=== PATIENT | female | born 1955 | race African-American/Black ===

== ENCOUNTER → 2016-09-28 | Day surgery (SDC) | payer OTHER ==
[~2016-09-28] MED LIST: LIDOCAINE 1%/EPI 1:100000 (20 ML MULTI DOSE VIAL) ONE
--- NOTE | 2016-10-04 14:59 | PATH ---
Surgical Pathology Report Patient Name: JARAD KRISHNA [facility]. Rec. #: [id number] /Age/Gender: 1955 (Age: 61) / F Account: [id number] Location: [facility] Taken: 09/28/2016 Received: 09/28/2016 Reported: 10/04/2016 Physicians: Austin Peace Specimen(s) Received RIGHT BREAST CORE BIOPSY 5:00 RETRO Clinical History Ultrasound findings: Suspicious Final Diagnosis Breast, right, 5:00 Retro, core biopsy: Invasive mammary carcinoma with mixed ductal and lobular features (nuclear grade 2), measuring 8 mm in greatest dimension in this material. 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 Note: E-cadherin immunostain (performed at [facility]) shows a heterogenous staining pattern with weak to moderate membranous staining in a subset of the tumor cells while negative in the morphologically lobular appearing carcinoma. Immunostain for p120 catenin (performed at [place], [place]; [id number]) shows cytoplasmic staining within a subset of the tumor cells with membranous staining in the morphologically ductal appearing component. This immunoprofile in conjunction with the morphologic features, supports overlapping ductal and lobular phenotype. Results of ER and IN studies performed at [facility] are as follows: ER (clone [id number] mouse monoclonal antibody by [employer]) : >90 % nuclear staining with strong intensity (Positive). IN (clone16 mouse monoclonal antibody by [employer]): ~70 % nuclear staining with moderate to strong intensity (Positive). Results of Her2 (IHC) & Ki-67 studies performed at [place], [place] ([id number]) are as follows: Her2 IHC (EP3 from [employer], formerly known as [id number], using Lewis Polymer Refine detection kit): 0 (Negative). Ki-67: 15-20% (Intermediate). Positive and negative controls (internal if applicable) show appropriate results. Formalin fixation and cold ischemic times are within current ASCO/CAP recommendations for ER, IN and Her2 testing. Electronically Signed Denise Montemayor M.D. Gross Description Received in formalin labeled "right breast 5:00 retro," of a 1.8 x 1.3 x 0.3 cm aggregate of multiple scanlon-yellow, irregular to cylindrical portions of fibroadipose tissue. The formalin is filtered and the specimen is entirely submitted in one cassette. Time to formalin fixation: 2 minutes Total formalin fixation time: Approximately 8 hours. 09/28/2016 [facility]09/28/2016
== END | disposition home or self-care (01) ==
LOC: FRADUS-SUR 12:06
PROVIDERS: ATTEND Family Medicine
PROC: 0HBT3ZX Excision of Right Breast, Percutaneous Approach, Diagnostic (ICD-10-PCS; principal; 2016-09-28)
DX: N63 Unspecified lump in breast (principal); C50.311 Malignant neoplasm of lower-inner quadrant of right female breast
CPT/HCPCS: 19083; 87899; 88305-TC; 88342-TC; A4648; G0206-TC

== ENCOUNTER 2016-11-09 12:07 | Inpatient (IN) | payer OTHER ==
--- NOTE | 2016-11-07 16:54 | HP ---
Admitting History and Physical - Primary Care Physician PCP: Isabella Figueroa - Admission Chief Complaint: right breast cancer History of Present Illness: 61 year old nulliparous postmenapausal female with screening mammgram showing right breast nodular assymetry and persitent on xveiw 09/03/2016. A Right 7mm retroareolar mass at 4:00 was seen on US, Birad 4. She has a family H/O breast and ovarian cancer. Us core bx 09/28/2016 right 5:00 retroareolar region showed invasive ductal and lobular carcinoma. She has a mechanical valve 1997. History Source: Patient Limitations to Obtaining History: Other (prosthetic valve) - Past Medical History Cardiovascular: Yes: HTN, Hyperlipdemia, Other (prosthetic mitral valve) ...: No Endocrine: Yes: Diabetes Mellitus - Past Surgical History Past Surgical History: Yes: Valve Replacement (prosthetic mitral valve replaced 1997 on coumadin) Additional Past Surgical History: Left breast core bx benign - Smoking History Smoking history: Never smoked Have you smoked in the past 12 months: No - Alcohol/Substance Use Hx Alcohol Use: Yes (SOCIAL) Home Medications - Allergies Allergies/Adverse Reactions: Allergies Allergy/AdvReac Type Severity Reaction Status Date / Time amoxicillin Allergy Severe Nausea Verified 11/07/16 12:26 Iodinated Contrast Media - Allergy Severe Hives Verified 11/07/16 12:26 Oral and sertraline HCl [From Zoloft] Allergy Unknown Verified 11/07/16 12:26 simvastatin [From Zocor] Allergy Unknown Verified 11/07/16 12:26 - Home Medications Home Medications: Ambulatory Orders Amiodarone HCl [Cordarone -] 200 mg PO DAILY 07/13/14 Amlodipine Besylate [Norvasc -] 10 mg PO DAILY 07/13/14 Atenolol [Tenormin -] 25 mg PO BID 07/13/14 Diltiazem HCl [Tiazac] 240 mg PO DAILY 07/13/14 Labetalol HCl [Normodyne -] 300 mg PO HS 07/13/14 Metformin HCl [Glucophage -] 500 mg PO BID 07/13/14 Quinapril HCl [Accupril -] 40 mg PO DAILY 07/13/14 Rosuvastatin Calcium [Crestor] 20 mg PO DAILY 07/13/14 Solifenacin Succinate [Vesicare] 10 mg PO HS 07/13/14 Warfarin Sodium [Coumadin] 5 mg PO HS 07/13/14 Oxycodone HCl/Acetaminophen [Percocet 5/325 -] 1 - 2 tab PO Q4H PRN 11/07/16 Family Disease History - Family Disease History Other Family History: paternal aunt breast ca 55 and maternal aunt ovarian ca 65 Physical Examination Constitutional: Yes: Well Nourished, No Distress Breast(s): Yes: Other (breast tissue is diffusely dense no palpable masses or adenopathy post bx changes right breast) Problem List - Problems (1) Breast cancer, right breast Code(s): C50.911 - MALIGNANT NEOPLASM OF UNSP SITE OF RIGHT FEMALE BREAST Qualifiers: Breast location: lower inner quadrant of breast Patient sex: female Assessment/Plan Right breast wide excision mammogram needle localization, lymphoscintogram , sentenel node biopsy , possible axillary node dissection, possible intraop radiation
--- NOTE | 2016-11-09 12:48 | HP ---
CHIEF COMPLAINT: breast ca PCP: Dr Lange Lay Out Carpenter: Dr Castano Breast surgeon: Dr Sheffield HISTORY OF PRESENT ILLNESS: patient is a 61 y/o female with a past medical history of paroxysmal afib, mitral valve replacement (mechanical, 1997), rheumatic heart disease, hypertension, right shoulder rotar cuff, hyperlipidemia , and invasive ductal lobular carcinoma of the right breast. Patient reports feeling well, her last dose of coumadin was Tuesday, November 07. Patient presents for pending right breast wide excision, partial mastectomy, possible axillary node dissection. Recent Travel: none PAST MEDICAL HISTORY: see hpi PAST SURGICAL HISTORY: see hpi Social History: resides at home, subsitute teacher Smoking: former smoker Alcohol:social Drugs: none Family History: Mother 80y/o alive and well, CAD, COPD, PPM Father at 53y/o [place] Allergies amoxicillin Allergy (Severe, Verified 11/07/16 12:26) Nausea Iodinated Contrast Media - Oral and Allergy (Severe, Verified 11/07/16 12:26) Hives sertraline HCl [From Zoloft] Allergy (Unknown, Verified 11/07/16 12:26) simvastatin [From Zocor] Allergy (Unknown, Verified 11/07/16 12:26) HOME MEDICATIONS: Home Medications Medication Instructions Recorded Amiodarone HCl [Cordarone -] 200 mg PO DAILY 07/13/14 Amlodipine Besylate [Norvasc -] 10 mg PO DAILY 07/13/14 Atenolol [Tenormin -] 25 mg PO BID 07/13/14 Diltiazem HCl [Tiazac] 240 mg PO DAILY 07/13/14 Labetalol HCl [Normodyne -] 300 mg PO HS 07/13/14 Metformin HCl [Glucophage -] 500 mg PO BID 07/13/14 Quinapril HCl [Accupril -] 40 mg PO DAILY 07/13/14 Rosuvastatin Calcium [Crestor] 20 mg PO DAILY 07/13/14 Solifenacin Succinate [Vesicare] 10 mg PO HS 07/13/14 Warfarin Sodium [Coumadin] 5 mg PO HS 07/13/14 Oxycodone HCl/Acetaminophen 1 - 2 tab PO Q4H PRN 11/07/16 [Percocet 5/325 -] REVIEW OF SYSTEMS CONSTITUTIONAL: Absent: fever, chills, diaphoresis, generalized weakness, malaise, loss of appetite, weight change HEENT: Absent: rhinorrhea, nasal congestion, throat pain, throat swelling, difficulty swallowing, mouth swelling, ear pain, eye pain, visual changes CARDIOVASCULAR: Absent: chest pain, syncope, palpitations, irregular heart rate, lightheadedness , peripheral edema RESPIRATORY: Absent: cough, shortness of breath, dyspnea with exertion, orthopnea, wheezing, stridor, hemoptysis GASTROINTESTINAL: Absent: abdominal pain, abdominal distension, nausea, vomiting, diarrhea, constipation, melena, hematochezia GENITOURINARY: Absent: dysuria, frequency, urgency, hesitancy, hematuria, flank pain, genital pain MUSCULOSKELETAL: Absent: myalgia, arthralgia, joint swelling, back pain, neck pain SKIN: Absent: rash, itching, pallor HEMATOLOGIC/IMMUNOLOGIC: Absent: easy bleeding, easy bruising, lymphadenopathy, frequent infections ENDOCRINE: Absent: unexplained weight gain, unexplained weight loss, heat intolerance, cold intolerance NEUROLOGIC: Absent: headache, focal weakness or paresthesias, dizziness, unsteady gait, seizure, mental status changes, bladder or bowel incontinence PSYCHIATRIC: Absent: anxiety, depression, suicidal or homicidal ideation, hallucinations. PHYSICAL EXAMINATION GENERAL: thin, Awake, alert, and fully oriented, anxious. HEAD: Normal with no signs of trauma. EYES: Pupils equal, round and reactive to light, extraocular movements intact, sclera anicteric, conjunctiva clear. No lid lag. EARS, NOSE, THROAT: Ears normal, nares patent, oropharynx clear without exudates. Moist mucous membranes. NECK: Normal range of motion, supple without lymphadenopathy, JVD, or masses. LUNGS: Breath sounds equal, clear to auscultation bilaterally. No wheezes, and no crackles. No accessory muscle use. HEART: regular, rate and rhythm, normal S1 and S2 without murmur, rub or gallop. ABDOMEN: Soft, nontender, not distended, normoactive bowel sounds, no guarding, no rebound, no masses. No hepatomegaly or splenomegaly. MUSCULOSKELETAL: Normal range of motion at all joints. No bony deformities or tenderness. No CVA tenderness. UPPER EXTREMITIES: 2+ pulses, warm, well-perfused. No cyanosis. No clubbing. No peripheral edema. LOWER EXTREMITIES: 2+ pulses, warm, well-perfused. No calf tenderness. No peripheral edema. NEUROLOGICAL: Cranial nerves II-XII intact. Normal speech. Normal gait. PSYCHIATRIC: Cooperative. Good eye contact. Appropriate mood and affect. SKIN: Warm, dry, normal turgor, no rashes or lesions noted, normal capillary refill. ASSESSMENT/PLAN: 1) card paroxysmal Afib - pt currently in NSR, strict monitoring - continue amiodarone and atenolol - cardiology consulted and following, Dr Castano, patient's private leather scrubber - Dr Castano cardiac clearance reviewed recent stress test LV function normal, no ischemia, normal sinus rhythmn s/p mechanical valve - hold coumadin, INR ordered, if INR is below 2.5, will start heparin gtt hyperlipidemia - continue, crestor hypertension - strict b/p monitoring, b/p at goal, continue atenolol and norvasc 2) endo NIDDM - continue metformin, fingersticks achs with regular insulin coverage 3) onc invasive ductal lobular carcinoma of the right breast - pt is pending surgery for right breast wide excision, partial mastectomy, possible axillary node dissection on November 13 - Dr Sheffield, breast surgeon, consulted and following f/e/n - low sodium diabetic diet - replete lytes prn ppx - zantac - coumadin - oob - scd dispo: requires inpatient admission Visit type - Emergency Visit Emergency Visit: No - New Patient This patient is new to me today: Yes Date on this admission: 11/09/16 - Critical Care Critical Care patient: No
[2016-11-09 13:37] LABS: BASOPHIL 3.6 % (0-2.0); EOSINOPHIL 2.6 % (0-4.5); MCH 28.8 pg (25.7-33.7); MCHC 33.3 g/dl (32.0-36.0); MEAN CELL VOLUME 86.7 fl (80-96); MEAN PLT VOLUME 8.7 fl (7.5-11.1); NEUTROPHILS 54.9 % (42.8-82.8); PLATELET COUNT 316 K/MM3 (134-434); RDW 15.1 % (11.6-15.6); WHITE BLOOD COUNT 5.4 K/mm3 (4.0-10.8)
[2016-11-09 13:39] VITALS: BMI 25.1
[2016-11-09 13:49] LABS: INR 2.3 (0.82-1.09); PROTHROMBIN TIME (PATIENT) 25.3 SEC (10.2-13.0)
--- NOTE | 2016-11-09 14:21 | CON.CARD ---
Cardiology Consult (text) - Consultation Consultation Note: Cardiology Consult CC: Admitted directly for UFH gtts as bridge to surgery, history mechnical MR ' 98 Procedure: Right breast wide excision, partial mastectomy, possible axillary node dissection. HPI: 61F with newly diagnosed breast CA admitted for breast surgery and management of AC for mechanical MV preop. PMHx: of rheumatic heart disease s/p mechanical MCR 1998, PAF, refractory HTN, DM, HL She has no CV complaints at this time. 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 Physical Exam Vitals as listed. Selected Entries No distress Anicteric CV: mech S1, nl S2. Chest: CTA b/l Abd: soft, NT Ext: no edema 11/09/16 12:35 Temperature 97.6 F Pulse Rate 76 Blood Pressure 144/73 O2 Sat by Pulse 100 Oximetry (%) Weight 163 lb 0.3 oz LABS: Laboratory Tests 11/09/16 11/09/16 12:45 12:45 WBC 5.4 Hgb 12.6 Hct 38.0 Plt Count 316 INR 2.30 H IMP: Newly diagnosed breast CA, preop for possible right partial mastectomy and LN dissection Mechanical MVR, PAF on coumadin Admitted for management of anticoagulation preop REC: After one evening of holding coumadin, INR is 2.3 which is subtherapeutic (goal INR 2.5-3.5). Recommend holding coumadin and agree with UFH gtts as bridge to surgery. Post op, will need bridging again until INR above 2.5. Continue home BP and rate control meds-- her regimen is somewhat unusual including both Labetalol and Atenolol as well as Cardizem and Norvasc. She has been on this regimen for > 5 years and has told me that prior to initiating this combo of meds, her BP was very difficult to manage and her AF was was very active with frequent episodes of RVR requiring hospitalization and DCCV. She has been stable on these meds under my care for the last year.
[2016-11-09] MEDS ORDERED: HEPARIN INFUSION - 500 ML IVPB ONE (14:49)
[2016-11-09] MEDS: HEPARIN INFUSION - 500 ML IVPB SCH (14:59)
[2016-11-09] MEDS ORDERED: metFORMIN HCL 500 MG TABLET (FP) PO SCH (16:30)
[2016-11-09] MEDS: INSULIN SLIDING SCALE (NOVOLOG) 1 VIAL SQ SCH ×2 (16:37→23:12)
[2016-11-09 16:49] LABS: ALBUMIN 4.3 g/dl (3.5-5.0); ALK PHOS 76 U/L (32-92); ANION GAP 8 (8-16); BILIRUBIN,TOTAL 0.9 mg/dl (0.2-1.0); CALCIUM 9.6 mg/dl (8.4-10.2); CO2 24 mmol/L (22-28); CREATININE 0.8 mg/dl (0.6-1.3); GLUCOSE,RANDOM 117 mg/dl (74-106); SGOT/AST 28 U/L (10-42); SGPT/ALT 18 U/L (10-40)
[2016-11-09] MEDS: metFORMIN HCL 500 MG TABLET (FP) PO SCH (18:20)
[2016-11-09] MEDS: LABETALOL HCL 100 MG TABLET (FP) PO SCH (22:13)
[2016-11-09] MEDS: SOLIFENACIN SUCCINATE 5 MG TAB (FP) PO SCH (22:13)
[2016-11-09] MEDS: ATENOLOL 25 MG TABLET (FP) PO SCH (22:13)
[2016-11-10] MEDS: metFORMIN HCL 500 MG TABLET (FP) PO SCH ×2 (06:14→17:02)
[2016-11-10] MEDS: INSULIN SLIDING SCALE (NOVOLOG) 1 VIAL SQ SCH ×3 (06:38→22:20)
[2016-11-10 08:04] LABS: MCHC 33.2 g/dl (32.0-36.0); MEAN CELL VOLUME 87.4 fl (80-96); MEAN PLT VOLUME 8.6 fl (7.5-11.1); PLATELET COUNT 325 K/MM3 (134-434); RDW 14.6 % (11.6-15.6); WHITE BLOOD COUNT 4.7 K/mm3 (4.0-10.8)
[2016-11-10 08:24] LABS: INR 2.07 (0.82-1.09); PROTHROMBIN TIME (PATIENT) 22.9 SEC (10.2-13.0)
--- NOTE | 2016-11-10 08:53 | PN ---
Physical Exam: SUBJECTIVE: Patient seen and examined at bedside. Currently without complaints. Heparin gtt infusing. OBJECTIVE: Vital Signs 3 Period Temp Pulse Resp BP Sys/Solares Pulse Ox Last 24 Hr 97.6 F-98.5 F 59-76 17-18 104-144/48-73 95-100 GENERAL: The patient is awake, alert, and fully oriented, in no acute distress. HEAD: Normal with no signs of trauma. LUNGS: Breath sounds equal, clear to auscultation bilaterally, no wheezes, no crackles, no accessory muscle use. HEART: Regular rate and rhythm, S1, S2 without murmur, rub or gallop. Mechanical valve auscultated. ABDOMEN: Soft, nontender, nondistended, normoactive bowel sounds, no guarding, no rebound, no hepatosplenomegaly, no masses. EXTREMITIES: 2+ pulses, warm, well-perfused, no edema. NEUROLOGICAL: Cranial nerves II through XII grossly intact. Normal speech, gait steady. PSYCH: Normal mood, normal affect. SKIN: Warm, dry, normal turgor, no rashes or lesions noted Laboratory Results - last 24 hr 3 11/09/16 11/09/16 11/09/16 12:45 12:45 14:20 WBC 5.4 RBC 4.38 Hgb 12.6 Hct 38.0 MCV 86.7 MCH MCHC 33.3 RDW 15.1 Plt Count 316 MPV 8.7 Neutrophils % 54.9 Lymphocytes % 30.1 Monocytes % 8.8 Eosinophils % 2.6 Basophils % 3.6 H INR 2.30 H PTT (Actin FS) Sodium Potassium Chloride Carbon Dioxide Anion Gap BUN Creatinine Creat Clearance w eGFR POC Glucometer Random Glucose Calcium Total Bilirubin AST ALT Alkaline Phosphatase Total Protein Albumin Blood Type O POSITIVE Antibody Screen Negative 3 11/09/16 11/09/16 11/09/16 14:20 14:20 16:35 WBC RBC Hgb Hct MCV MCH MCHC RDW Plt Count MPV Neutrophils % Lymphocytes % Monocytes % Eosinophils % Basophils % INR PTT (Actin FS) Sodium 140 Potassium 3.9 Chloride 108 H Carbon Dioxide 24 Anion Gap 8 BUN 13 Creatinine 0.8 Creat Clearance w eGFR > 60 POC Glucometer 121 Random Glucose 117 H Calcium 9.6 Total Bilirubin 0.9 AST 28 ALT 18 Alkaline Phosphatase 76 Total Protein 7.0 Albumin 4.3 Blood Type O POSITIVE Antibody Screen 3 11/09/16 11/09/16 11/10/16 21:00 22:17 06:13 WBC RBC Hgb Hct MCV MCH MCHC RDW Plt Count MPV Neutrophils % Lymphocytes % Monocytes % Eosinophils % Basophils % INR PTT (Actin FS) 59.6 H Sodium Potassium Chloride Carbon Dioxide Anion Gap BUN Creatinine Creat Clearance w eGFR POC Glucometer 109 110 Random Glucose Calcium Total Bilirubin AST ALT Alkaline Phosphatase Total Protein Albumin Blood Type Antibody Screen 3 11/10/16 11/10/16 07:48 07:48 WBC 4.7 RBC 4.29 Hgb 12.4 Hct 37.5 MCV 87.4 MCH 29.0 MCHC 33.2 RDW 14.6 Plt Count 325 MPV 8.6 Neutrophils % Y Lymphocytes % Y Monocytes % Eosinophils % Basophils % INR 2.07 H PTT (Actin FS) Sodium Potassium Chloride Carbon Dioxide Anion Gap BUN Creatinine Creat Clearance w eGFR POC Glucometer Random Glucose Calcium Total Bilirubin AST ALT Alkaline Phosphatase Total Protein Albumin Blood Type Antibody Screen Active Medications 3 Generic Name Dose Route Start Last Admin Trade Name Romie PRN Reason Stop Dose Admin Amiodarone HCl 200 mg 11/10/16 10:00 Cordarone - PO DAILY SPEEDY Amlodipine Besylate 10 mg 11/10/16 10:00 Norvasc - PO DAILY [facility] Atenolol 25 mg 11/09/16 22:00 11/09/16 22:13 Tenormin - PO 25 mg BID SPEEDY Administration Diltiazem HCl 240 mg 11/10/16 10:00 Cardizem Cd - PO DAILY SPEEDY Heparin Sodium/Dextrose 500 mls @ 16 mls/hr 11/09/16 14:15 11/09/16 14:59 Heparin Infusion - IVPB 16 mls/hr TITR SPEEDY Administration Protocol 800 UNITS/HR Insulin Aspart 1 vial 11/09/16 16:30 11/10/16 06:38 Novolog Vial Sliding Scale - SQ Not Given ACHS SPEEDY Protocol Labetalol HCl 300 mg 11/09/16 22:00 11/09/16 22:13 Normodyne - PO 300 mg HS SPEEDY Administration Metformin HCl 500 mg 11/09/16 16:30 11/10/16 06:14 Glucophage - PO 500 mg BIDI SPEEDY Administration Quinapril HCl 40 mg 11/10/16 10:00 Accupril - PO DAILY SPEEDY Ranitidine HCl 150 mg 11/10/16 10:00 Zantac - PO DAILY SPEEDY Rosuvastatin Calcium 20 mg 11/10/16 10:00 Crestor - PO DAILY SPEEDY Solifenacin 10 mg 11/09/16 22:00 11/09/16 22:13 Vesicare - PO 10 mg HS SPEEDY Administration ASSESSMENT/PLAN: A: 61 yo woman with invasive right ductal and lobular carcinoma- scheduled for right breast wide excision with possible lymph node dissection on 11/13. Needs heparin bridge to wean warfarin. P: 1. Right ductal and lobular carcinoma - breast wide excision scheduled for 11/13 2. Mechanical mitral valve - INR- 2.07 this AM - continue to hold warfarin - continue heparin gtt- titrate per ptt results - daily ptt/pt/INR 3. Paroxysmal atrial fibrillation - continue amiodorone - continue diltiazem - continue labetalol - continue atenolol 4. HTN - well controlled on current regimen - continue amiodorone - continue diltiazem - continue labetalol - continue atenolol - continue norvasc - continue quinapril 5. DM - FSBG qACHS - ISS - Metformin 6. HLD - Crestor 7. F/E/N - diabetic diet - replete prn 8. PPX - Zantac - heparin gtt - SCD - OOB Dispo- requires inpatient treatment of her medical conditions Code Status: FULL CODE Visit type - Emergency Visit Emergency Visit: Yes ED Registration Date: 11/09/16 Care time: The patient presented to the Emergency Department on the above date and was hospitalized for further evaluation of their emergent condition. - New Patient This patient is new to me today: Yes Date on this admission: 11/11/16 - Critical Care Critical Care patient: No
[2016-11-10 09:00] LABS: PLATELET ESTIMATE NORMAL (NORMAL)
[2016-11-10] MEDS: RANITIDINE HCL 150 MG TABLET (FP) PO SCH (10:22)
[2016-11-10] MEDS: ATENOLOL 25 MG TABLET (FP) PO SCH ×2 (10:22→21:40)
[2016-11-10] MEDS: ROSUVASTATIN CA 20 MG TABLET (FP) PO SCH (10:22)
[2016-11-10] MEDS: amLODIPine BESYLATE 10 MG TABLET (FP) PO SCH (10:22)
[2016-11-10] MEDS: AMIODARONE HCL 200 MG TABLET (FP) PO SCH (10:22)
[2016-11-10] MEDS: QUINAPRIL HCL 40 MG TABLET (FP) PO SCH (10:24)
[2016-11-10] MEDS: HEPARIN INFUSION - 500 ML IVPB SCH (17:02)
[2016-11-10] MEDS: LABETALOL HCL 100 MG TABLET (FP) PO SCH (21:39)
[2016-11-10] MEDS: SOLIFENACIN SUCCINATE 5 MG TAB (FP) PO SCH (21:39)
[2016-11-11] MEDS: metFORMIN HCL 500 MG TABLET (FP) PO SCH ×2 (06:39→17:35)
[2016-11-11] MEDS: INSULIN SLIDING SCALE (NOVOLOG) 1 VIAL SQ SCH ×3 (06:39→17:35)
[2016-11-11 08:17] LABS: INR 1.44 (0.82-1.09)
[2016-11-11 08:24] LABS: ACTIVATED PTT 39.5 SECONDS (24.0-38.9)
[2016-11-11] MEDS ORDERED: HEPARIN NA (PORCINE) 5,000 UNITS/ML 1ML VIAL ONE (08:51)
[2016-11-11] MEDS: HEPARIN NA (PORCINE) 5,000 UNITS/ML 1ML VIAL IVPUSH PRN (09:00)
--- NOTE | 2016-11-11 09:03 | PN ---
Physical Exam: SUBJECTIVE: Patient seen and examined at bedside. Denies all c/o at present. OBJECTIVE: Vital Signs Period Temp Pulse Resp BP Sys/Solares Pulse Ox Last 24 Hr 98.3 F-98.8 F 61-74 18-20 104-128/57-67 99-100 GENERAL: The patient is awake, alert, and fully oriented, in no acute distress. HEAD: Normal with no signs of trauma. LUNGS: Breath sounds equal, clear to auscultation bilaterally, no wheezes, no crackles, no accessory muscle use. HEART: Regular rate and rhythm, S1, S2 with 2/6 systolic murmur. No rub or gallop. ABDOMEN: Soft, nontender, nondistended, normoactive bowel sounds, no guarding, no rebound, no hepatosplenomegaly, no masses. EXTREMITIES: 2+ pulses, warm, well-perfused, no edema. NEUROLOGICAL: Cranial nerves II through XII grossly intact. Normal speech, gait steady. PSYCH: Normal mood, normal affect. SKIN: Warm, dry, normal turgor, no rashes or lesions noted Laboratory Results - last 24 hr 3 11/10/16 11/10/16 11/10/16 08:32 12:40 22:13 INR PTT (Actin FS) 57.7 H POC Glucometer 106 112 3 11/11/16 11/11/16 06:09 06:15 INR 1.44 H D PTT (Actin FS) 39.5 H D POC Glucometer 116 Active Medications 3 Generic Name Dose Route Start Last Admin Trade Name Freq PRN Reason Stop Dose Admin Amiodarone HCl 200 mg 11/10/16 10:00 11/10/16 10:22 Cordarone - PO 200 mg DAILY SPEEDY Administration Amlodipine Besylate 10 mg 11/10/16 10:00 11/10/16 10:22 Norvasc - PO 10 mg DAILY SPEEDY Administration Atenolol 25 mg 11/09/16 22:00 11/10/16 21:40 Tenormin - PO 25 mg BID SPEEDY Administration Diltiazem HCl 240 mg 11/10/16 10:00 11/10/16 10:22 Cardizem Cd - PO 240 mg DAILY SPEEDY Administration Heparin Sodium/Dextrose 500 mls @ 16 mls/hr 11/09/16 14:15 11/10/16 17:02 Heparin Infusion - IVPB 16 mls/hr TITR SPEEDY Administration Protocol 800 UNITS/HR Insulin Aspart 1 vial 11/09/16 16:30 11/11/16 06:39 Novolog Vial Sliding Scale - SQ Not Given ACHS SPEEDY Protocol Labetalol HCl 300 mg 11/09/16 22:00 11/10/16 21:39 Normodyne - PO 300 mg HS SPEEDY Administration Metformin HCl 500 mg 11/09/16 16:30 11/11/16 06:39 Glucophage - PO 500 mg BIDI SPEEDY Administration Quinapril HCl 40 mg 11/10/16 10:00 11/10/16 10:24 Accupril - PO 40 mg DAILY SPEEDY Administration Ranitidine HCl 150 mg 11/10/16 10:00 11/10/16 10:22 Zantac - PO 150 mg DAILY SPEEDY Administration Rosuvastatin Calcium 20 mg 11/10/16 10:00 11/10/16 10:22 Crestor - PO 20 mg DAILY SPEEDY Administration Solifenacin 10 mg 11/09/16 22:00 11/10/16 21:39 Vesicare - PO 10 mg HS SPEEDY Administration ASSESSMENT/PLAN: A: 61 yo woman with invasive right ductal and lobular carcinoma- scheduled for right breast wide excision with possible lymph node dissection on 11/13. Needs heparin bridge to wean warfarin pre-procedure. P: 1. Right ductal and lobular carcinoma - breast wide excision scheduled for 11/13 2. Mechanical mitral valve - INR- 1.44 this AM - continue to hold warfarin - continue heparin gtt- titrate per ptt results 39.4 this AM increased gtt to 19cc/hr and bolus of 5000 units - daily ptt/pt/INR 3. Paroxysmal atrial fibrillation - continue amiodorone - continue diltiazem - continue labetalol - continue atenolol 4. HTN - well controlled on current regimen - continue amiodorone - continue diltiazem - continue labetalol - continue atenolol - continue norvasc - continue quinapril 5. DM - FSBG qACHS - ISS - Metformin 6. HLD - Crestor 7. F/E/N - diabetic diet - replete prn 8. PPX - Zantac - heparin gtt - SCD - OOB Dispo- requires inpatient treatment of her medical conditions Code Status: FULL CODE Visit type - Emergency Visit Emergency Visit: Yes ED Registration Date: 11/09/16 Care time: The patient presented to the Emergency Department on the above date and was hospitalized for further evaluation of their emergent condition. - New Patient This patient is new to me today: No - Critical Care Critical Care patient: No
[2016-11-11] MEDS ORDERED: PT OWN MED DRAWER 7, Y5N ONE (09:27)
[2016-11-11] MEDS: ROSUVASTATIN CA 20 MG TABLET (FP) PO SCH (09:33)
[2016-11-11] MEDS: RANITIDINE HCL 150 MG TABLET (FP) PO SCH (09:33)
[2016-11-11] MEDS: amLODIPine BESYLATE 10 MG TABLET (FP) PO SCH (09:33)
[2016-11-11] MEDS: QUINAPRIL HCL 40 MG TABLET (FP) PO SCH (09:33)
[2016-11-11] MEDS: AMIODARONE HCL 200 MG TABLET (FP) PO SCH (09:33)
[2016-11-11] MEDS: ATENOLOL 25 MG TABLET (FP) PO SCH ×2 (09:33→21:26)
[2016-11-11] MEDS ORDERED: HEPARIN INFUSION - 500 ML IVPB SCH (09:41)
[2016-11-11] MEDS: HEPARIN INFUSION - 500 ML IVPB SCH ×3 (16:00→17:56)
[2016-11-11] MEDS: LABETALOL HCL 100 MG TABLET (FP) PO SCH (21:26)
[2016-11-11] MEDS: SOLIFENACIN SUCCINATE 5 MG TAB (FP) PO SCH (21:26)
[2016-11-12] MEDS: INSULIN SLIDING SCALE (NOVOLOG) 1 VIAL SQ SCH ×3 (06:23→17:47)
[2016-11-12] MEDS: metFORMIN HCL 500 MG TABLET (FP) PO SCH ×3 (06:24→18:15)
--- NOTE | 2016-11-12 08:12 | PN ---
Physical Exam: SUBJECTIVE: Patient seen and examined, reports feeling well, anxious about her pending surgery tomorrow OBJECTIVE: patient is a 61 y/o female with a past medical history of paroxysmal afib, mitral valve replacement (mechanical, 1997), rheumatic heart disease, hypertension, right shoulder rotar cuff, hyperlipidemia, and invasive ductal lobular carcinoma of the right breast. Patient was admitted from the emergency department for subthereputic inr Vital Signs Period Temp Pulse Resp BP Sys/Solares Pulse Ox Last 24 Hr 97.7 F-98.6 F 55-67 18-18 99-120/53-58 99-100 GENERAL: Thin, Awake, alert, and fully oriented, anxious. HEAD: Normal with no signs of trauma. EYES: Pupils equal, round and reactive to light, extraocular movements intact, sclera anicteric, conjunctiva clear. No lid lag. EARS, NOSE, THROAT: Ears normal, nares patent, oropharynx clear without exudates. Moist mucous membranes. NECK: Normal range of motion, supple without lymphadenopathy, JVD, or masses. LUNGS: Breath sounds equal, clear to auscultation bilaterally. No wheezes, and no crackles. No accessory muscle use. HEART: regular, rate and rhythm, normal S1 and S2 without murmur, rub or gallop. ABDOMEN: Soft, nontender, not distended, normoactive bowel sounds, no guarding, no rebound, no masses. No hepatomegaly or splenomegaly. MUSCULOSKELETAL: Normal range of motion at all joints. No bony deformities or tenderness. No CVA tenderness. UPPER EXTREMITIES: 2+ pulses, warm, well-perfused. No cyanosis. No clubbing. No peripheral edema. LOWER EXTREMITIES: 2+ pulses, warm, well-perfused. No calf tenderness. No peripheral edema. NEUROLOGICAL: Cranial nerves II-XII intact. Normal speech. Normal gait. PSYCHIATRIC: Cooperative. Good eye contact. Appropriate mood and affect. SKIN: Warm, dry, normal turgor, no rashes or lesions noted, normal capillary refill. Laboratory Results - last 24 hr 11/11/16 11/11/16 11/11/16 06:15 12:02 14:50 INR 1.44 H D PTT (Actin FS) 39.5 H D 92.6 H D POC Glucometer 123 11/11/16 11/11/16 11/11/16 17:19 21:36 23:20 INR PTT (Actin FS) 49.0 H D POC Glucometer 108 92 11/12/16 05:47 INR PTT (Actin FS) POC Glucometer 123 Active Medications Generic Name Dose Route Start Last Admin Trade Name Freq PRN Reason Stop Dose Admin Amiodarone HCl 200 mg 11/10/16 10:00 11/11/16 09:33 Cordarone - PO 200 mg DAILY SPEEDY Administration Amlodipine Besylate 10 mg 11/10/16 10:00 11/11/16 09:33 Norvasc - PO 10 mg DAILY SPEEDY Administration Atenolol 25 mg 11/09/16 22:00 11/11/16 21:26 Tenormin - PO 25 mg BID SPEEDY Administration Diltiazem HCl 240 mg 11/10/16 10:00 11/11/16 09:33 Cardizem Cd - PO 240 mg DAILY SPEEDY Administration Heparin Sodium (Porcine) 5,000 unit 11/11/16 09:42 11/11/16 09:00 Heparin - IVPUSH 5,000 unit PRN PRN Administration Heparin Heparin Sodium/Dextrose 500 mls @ 19 mls/hr 11/11/16 12:25 11/11/16 23:54 Heparin Infusion - IVPB TITR SPEEDY Titration Protocol Titrate Insulin Aspart 1 vial 11/09/16 16:30 11/12/16 06:23 Novolog Vial Sliding Scale - SQ Not Given ACHS SPEEDY Protocol Labetalol HCl 300 mg 11/09/16 22:00 11/11/16 21:26 Normodyne - PO 300 mg HS SPEEDY Administration Metformin HCl 500 mg 11/09/16 16:30 11/12/16 06:24 Glucophage - PO 500 mg BIDI SPEEDY Administration Quinapril HCl 40 mg 11/10/16 10:00 11/11/16 09:33 Accupril - PO 40 mg DAILY SPEEDY Administration Ranitidine HCl 150 mg 11/10/16 10:00 11/11/16 09:33 Zantac - PO 150 mg DAILY SPEEDY Administration Rosuvastatin Calcium 20 mg 11/10/16 10:00 11/11/16 09:33 Crestor - PO 20 mg DAILY SPEEDY Administration Solifenacin 10 mg 11/09/16 22:00 11/11/16 21:26 Vesicare - PO 10 mg HS SPEEDY Administration ASSESSMENT/PLAN: 1) card paroxysmal Afib - pt currently in NSR, strict monitoring - continue amiodarone and atenolol - cardiology consulted and following, Dr Castano, patient's private training representative - Dr Castano cardiac clearance reviewed recent stress test LV function normal, no ischemia, normal sinus rhythmn s/p mechanical valve - hold coumadin, continue heparin gtt, pending OR tomm, heparin gtt to be stopped, one hour prior to the procedure hyperlipidemia - continue, crestor hypertension - strict b/p monitoring, b/p at goal, continue atenolol and norvasc 2) endo NIDDM - continue metformin, fingersticks achs with regular insulin coverage 3) onc invasive ductal lobular carcinoma of the right breast - pt is pending surgery for right breast wide excision, partial mastectomy, possible axillary node dissection on November 13 - Dr Sheffield, breast surgeon, consulted and following f/e/n - low sodium diabetic diet--->npo after midnight - replete lytes prn ppx - zantac - coumadin - oob - scd dispo: requires inpatient admission Visit type - Emergency Visit Emergency Visit: Yes ED Registration Date: 11/09/16 Care time: The patient presented to the Emergency Department on the above date and was hospitalized for further evaluation of their emergent condition. - New Patient This patient is new to me today: No - Critical Care Critical Care patient: No - Discharge Referral Referred to [facility] Med P.C.: No
[2016-11-12 08:26] LABS: INR 1.16 (0.82-1.09); PROTHROMBIN TIME (PATIENT) 12.9 SEC (10.2-13.0)
[2016-11-12 08:33] LABS: ACTIVATED PTT 56.9 SECONDS (24.0-38.9)
[2016-11-12 08:40] LABS: BASOPHIL 1.8 % (0-2.0); EOSINOPHIL 3.9 % (0-4.5); MCH 29.1 pg (25.7-33.7); MCHC 33.3 g/dl (32.0-36.0); MEAN CELL VOLUME 87.4 fl (80-96); MEAN PLT VOLUME 9.1 fl (7.5-11.1); PLATELET COUNT 286 K/MM3 (134-434); WHITE BLOOD COUNT 4.8 K/mm3 (4.0-10.8)
[2016-11-12] MEDS: QUINAPRIL HCL 20 MG TABLET (FP) PO SCH (09:39)
[2016-11-12] MEDS: ROSUVASTATIN CA 20 MG TABLET (FP) PO SCH (09:40)
[2016-11-12] MEDS: AMIODARONE HCL 200 MG TABLET (FP) PO SCH (09:40)
[2016-11-12] MEDS: amLODIPine BESYLATE 10 MG TABLET (FP) PO SCH (09:40)
[2016-11-12] MEDS: RANITIDINE HCL 150 MG TABLET (FP) PO SCH (09:41)
[2016-11-12] MEDS: ATENOLOL 25 MG TABLET (FP) PO SCH ×2 (09:41→21:27)
--- NOTE | 2016-11-12 12:04 | PN ---
Progress Note, Physician History of Present Illness: seen and examined today in nad. no new complaints. - Current Medication List Current Medications: Active Medications Amiodarone HCl (Cordarone -) 200 mg PO DAILY [facility] Last Admin: 11/12/16 09:40 Dose: 200 mg Amlodipine Besylate (Norvasc -) 10 mg PO DAILY [facility] Last Admin: 11/12/16 09:40 Dose: 10 mg Atenolol (Tenormin -) 25 mg PO BID [facility] Last Admin: 11/12/16 09:41 Dose: 25 mg Diltiazem HCl (Cardizem Cd -) 240 mg PO DAILY [facility] Last Admin: 11/12/16 09:40 Dose: 240 mg Heparin Sodium (Porcine) (Heparin -) 5,000 unit IVPUSH PRN PRN PRN Reason: Heparin Last Admin: 11/11/16 09:00 Dose: 5,000 unit Heparin Sodium/Dextrose (Heparin Infusion -) 500 mls @ 19 mls/hr IVPB TITR SPEEDY ; Titrate PRN Reason: Protocol Last Titration: 11/11/16 23:54 Dose: Insulin Aspart (Novolog Vial Sliding Scale -) 1 vial SQ ACHS SPEEDY PRN Reason: Protocol Last Admin: 11/12/16 11:10 Dose: Not Given Labetalol HCl (Normodyne -) 300 mg PO HS [facility] Last Admin: 11/11/16 21:26 Dose: 300 mg Metformin HCl (Glucophage -) 500 mg PO BIDI [facility] Last Admin: 11/12/16 06:24 Dose: 500 mg Quinapril HCl (Accupril -) 40 mg PO DAILY [facility] Last Admin: 11/12/16 09:39 Dose: 40 mg Ranitidine HCl (Zantac -) 150 mg PO DAILY [facility] Last Admin: 11/12/16 09:41 Dose: 150 mg Rosuvastatin Calcium (Crestor -) 20 mg PO DAILY [facility] Last Admin: 11/12/16 09:40 Dose: 20 mg Solifenacin (Vesicare -) 10 mg PO HS [facility] Last Admin: 11/11/16 21:26 Dose: 10 mg - Objective Vital Signs: Vital Signs Temperature 98.3 F 11/12/16 06:00 Pulse Rate 72 11/12/16 10:00 Respiratory Rate 18 11/12/16 10:00 Blood Pressure 106/72 11/12/16 10:00 O2 Sat by Pulse Oximetry (%) 100 11/12/16 06:00 Constitutional: Yes: Well Nourished, No Distress, Calm Eyes: Yes: WNL, Conjunctiva Clear, EOM Intact, PERRL HENT: Yes: WNL, Atraumatic, Normocephalic Neck: Yes: WNL, Supple, Trachea Midline Cardiovascular: Yes: Regular Rate and Rhythm, Murmur, S1, S2, Other (mechanical MVR sound heard). No: Bradycardia, Tachycardia, Pulse Irregular, Bruit, JVD, Gallop, Rub, S3, S4, Varicosities Respiratory: Yes: WNL, Regular, CTA Bilaterally. No: Rales, Rhonchi, SOB, Wheezes Gastrointestinal: Yes: WNL, Normal Bowel Sounds, Soft. No: Distention, Tenderness Musculoskeletal: Yes: WNL Extremities: Yes: WNL Edema: No Peripheral Pulses WNL: Yes Peripheral Pulses: Left Doralis Pedis: 2+, Right Dorsalis Pedis: 2+ Integumentary: Yes: WNL Neurological: Yes: WNL, Alert, Oriented, Cran Nerves II-XII Intact ...Motor Strength: WNL Psychiatric: Yes: WNL, Alert, Oriented Labs: CBC, BMP 11/12/16 07:26 11/09/16 14:20 INR, PTT INR 1.16 (0.82-1.09) 11/12/16 07:26 - ....Imaging Chest X-ray: Report Reviewed, Image Reviewed EKG: Report Reviewed, Image Reviewed Other: Report Reviewed, Image Reviewed Assessment/Plan IMP: Newly diagnosed breast CA, preop for possible right partial mastectomy and LN dissection Mechanical MVR, PAF on coumadin Admitted for management of anticoagulation preop REC: Cont heparin gtt prior to surgery, to be held preop timing at the discretion of surgery (usually approx 6 hours preop) Post op would resume heparin gtt as soon as possible from a surgical standpoint to bridge with coumadin back to a therapeutic INR (goal INR 2.5-3.5 for mechanical MVR). Would give first dose of coumadin on the evening of surgery (tomorrow night), can give 10mg initially to assist a quicker return to therapeutic INR followed by her usual home regimen Cont other current medical as BP and HR are well controlled There is no cardiac contraindication to the planned surgical procedure at this time.
[2016-11-12] MEDS: LABETALOL HCL 100 MG TABLET (FP) PO SCH (21:27)
[2016-11-12] MEDS: SOLIFENACIN SUCCINATE 5 MG TAB (FP) PO SCH (21:27)
[2016-11-13 05:44] LABS: BASOPHIL 0.7 % (0-2.0); EOSINOPHIL 3.6 % (0-4.5); MCH 28.3 pg (25.7-33.7); MCHC 32.6 g/dl (32.0-36.0); MEAN CELL VOLUME 86.8 fl (80-96); MEAN PLT VOLUME 8.3 fl (7.5-11.1); NEUTROPHILS 46.9 % (42.8-82.8); PLATELET COUNT 236 K/MM3 (134-434); RDW 15.6 % (11.6-15.6); WHITE BLOOD COUNT 5.2 K/mm3 (4.0-10.0)
[2016-11-13 06:08] LABS: ANION GAP 9 (8-16); CO2 28 mmol/L (21-32); CREATININE 0.8 mg/dL (0.55-1.02); GLUCOSE,RANDOM 84 mg/dL (74-106); MAGNESIUM 1.6 mg/dL (1.8-2.4); PHOSPHOROUS 4.2 mg/dL (2.5-4.9)
[2016-11-13 06:20] LABS: INR 1.12 (0.82-1.09); PROTHROMBIN TIME (PATIENT) 12.4 SEC (9.98-11.88)
[2016-11-13] MEDS: INSULIN SLIDING SCALE (NOVOLOG) 1 VIAL SQ SCH ×4 (07:10→23:28)
[2016-11-13] MEDS: metFORMIN HCL 500 MG TABLET (FP) PO SCH (07:10)
[2016-11-13] MEDS: AMIODARONE HCL 200 MG TABLET (FP) PO SCH ×2 (10:10→14:47)
[2016-11-13] MEDS: QUINAPRIL HCL 20 MG TABLET (FP) PO SCH ×2 (10:10→14:47)
[2016-11-13] MEDS: amLODIPine BESYLATE 10 MG TABLET (FP) PO SCH ×2 (10:11→14:47)
[2016-11-13] MEDS: ATENOLOL 25 MG TABLET (FP) PO SCH ×3 (10:11→21:26)
[2016-11-13] MEDS: ROSUVASTATIN CA 20 MG TABLET (FP) PO SCH (10:11)
[2016-11-13] MEDS: RANITIDINE HCL 150 MG TABLET (FP) PO SCH (10:12)
[2016-11-13] MEDS: HEPARIN INFUSION - 500 ML IVPB SCH ×2 (10:13→22:30)
[2016-11-13] MEDS ORDERED: ISOSULFAN BLUE 10 MG/ML VIAL SQ ONE (10:21)
--- NOTE | 2016-11-13 11:30 | PN ---
Physical Exam: SUBJECTIVE: Patient seen and examined, reports feeling well, siting in bedside chair, denies any chest pain or shortness of breath. OBJECTIVE:patient is a 61 y/o female with a past medical history of paroxysmal afib, mitral valve replacement (mechanical, 1997), rheumatic heart disease, hypertension, right shoulder rotar cuff, hyperlipidemia, and invasive ductal lobular carcinoma of the right breast. Patient was admitted from the emergency department for subthereputic inr Vital Signs Period Temp Pulse Resp BP Sys/Solares Pulse Ox Last 24 Hr 98.1 F-99.9 F 66-72 17-18 101-118/50-64 98-100 GENERAL: Thin, Awake, alert, and fully oriented, anxious. HEAD: Normal with no signs of trauma. EYES: Pupils equal, round and reactive to light, extraocular movements intact, sclera anicteric, conjunctiva clear. No lid lag. EARS, NOSE, THROAT: Ears normal, nares patent, oropharynx clear without exudates. Moist mucous membranes. NECK: Normal range of motion, supple without lymphadenopathy, JVD, or masses. LUNGS: Breath sounds equal, clear to auscultation bilaterally. No wheezes, and no crackles. No accessory muscle use. HEART: regular, rate and rhythm, normal S1 and S2 without murmur, rub or gallop. ABDOMEN: Soft, nontender, not distended, normoactive bowel sounds, no guarding, no rebound, no masses. No hepatomegaly or splenomegaly. MUSCULOSKELETAL: Normal range of motion at all joints. No bony deformities or tenderness. No CVA tenderness. UPPER EXTREMITIES: 2+ pulses, warm, well-perfused. No cyanosis. No clubbing. No peripheral edema. LOWER EXTREMITIES: 2+ pulses, warm, well-perfused. No calf tenderness. No peripheral edema. NEUROLOGICAL: Cranial nerves II-XII intact. Normal speech. Normal gait. PSYCHIATRIC: Cooperative. Good eye contact. Appropriate mood and affect. SKIN: Warm, dry, normal turgor, no rashes or lesions noted, normal capillary refill. Laboratory Results - last 24 hr 11/12/16 11/12/16 11/13/16 11:05 16:57 05:00 WBC 5.2 RBC 3.82 Hgb 10.8 Hct 33.2 MCV 86.8 MCH 28.3 MCHC 32.6 RDW 15.6 Plt Count 236 MPV 8.3 Neutrophils % 46.9 Lymphocytes % 38.8 Monocytes % 10.0 Eosinophils % 3.6 Basophils % 0.7 INR PTT (Actin FS) Sodium Potassium Chloride Carbon Dioxide Anion Gap BUN Creatinine POC Glucometer 105 129 Random Glucose Calcium Phosphorus Magnesium 11/13/16 11/13/16 11/13/16 05:00 05:00 05:00 WBC RBC Hgb Hct MCV MCH MCHC RDW Plt Count MPV Neutrophils % Lymphocytes % Monocytes % Eosinophils % Basophils % INR 1.12 PTT (Actin FS) 51.3 H Sodium 144 Potassium 3.9 Chloride 107 Carbon Dioxide 28 Anion Gap 9 BUN 12 Creatinine 0.8 POC Glucometer Random Glucose 84 Calcium 9.0 Phosphorus 4.2 Magnesium 1.6 L Active Medications Generic Name Dose Route Start Last Admin Trade Name Freq PRN Reason Stop Dose Admin Amiodarone HCl 200 mg 11/10/16 10:00 11/13/16 10:10 Cordarone - PO Not Given DAILY SPEEDY Amlodipine Besylate 10 mg 11/10/16 10:00 11/13/16 10:11 Norvasc - PO Not Given DAILY [facility] Atenolol 25 mg 11/09/16 22:00 11/13/16 10:11 Tenormin - PO Not Given BID SPEEDY Diltiazem HCl 240 mg 11/10/16 10:00 11/13/16 10:10 Cardizem Cd - PO Not Given DAILY [facility] Insulin Aspart 1 vial 11/09/16 16:30 11/13/16 07:10 Novolog Vial Sliding Scale - SQ Not Given ACHS [facility] Protocol Labetalol HCl 300 mg 11/09/16 22:00 11/12/16 21:27 Normodyne - PO 300 mg HS [facility] Administration Metformin HCl 500 mg 11/09/16 16:30 11/13/16 07:10 Glucophage - PO Not Given BIDI SPEEDY Quinapril HCl 40 mg 11/12/16 10:00 11/13/16 10:10 Accupril - PO Not Given DAILY SPEEDY Ranitidine HCl 150 mg 11/10/16 10:00 11/13/16 10:12 Zantac - PO Not Given DAILY SPEEDY Rosuvastatin Calcium 20 mg 11/10/16 10:00 11/13/16 10:11 Crestor - PO Not Given DAILY [facility] Solifenacin 10 mg 11/09/16 22:00 11/12/16 21:27 Vesicare - PO 10 mg HS SPEEDY Administration ASSESSMENT/PLAN: 1) card paroxysmal Afib - pt currently in NSR, strict monitoring - continue amiodarone and atenolol - cardiology consulted and following, Dr Castano, patient's private property and equipment clerk - Dr Castano cardiac clearance reviewed recent stress test LV function normal, no ischemia, normal sinus rhythmn s/p mechanical valve - continue to hold coumadin, heparin gtt stopped at 0700 for pending OR tomm, can resume heparin with a bridge to coumadin when patient is cleared by breast surgeon (Yohannes) hyperlipidemia - continue, crestor hypertension - strict b/p monitoring, b/p at goal, continue atenolol and norvasc 2) endo NIDDM - hold metformin, fingersticks achs with regular insulin coverage 3) onc invasive ductal lobular carcinoma of the right breast - pt is pending surgery for right breast wide excision, partial mastectomy, possible axillary node dissection today - Dr Sheffield, breast surgeon, consulted and following f/e/n - low sodium diabetic diet--->npo after midnight - replete lytes prn ppx - zantac - coumadin - oob - scd dispo: requires inpatient admission Visit type - Emergency Visit Emergency Visit: Yes ED Registration Date: 11/09/16 Care time: The patient presented to the Emergency Department on the above date and was hospitalized for further evaluation of their emergent condition. - New Patient This patient is new to me today: No - Critical Care Critical Care patient: No - Discharge Referral Referred to [facility] Med P.C.: No
[2016-11-13] MEDS ORDERED: MIDAZOLAM HCL 2 MG/2 ML SINGLE DOSE VIAL ONE (11:45)
[2016-11-13] MEDS ORDERED: PROPOFOL 20 ML ONE ×2 (11:45)
[2016-11-13] MEDS ORDERED: ePHEDrine SULFATE 50 MG/1 ML AMPULE ONE (12:26)
[2016-11-13] MEDS ORDERED: METOPROLOL TARTRATE 5 MG/5 ML VIAL ONE (13:05)
[2016-11-13] MEDS ORDERED: CLINDAMYCIN PHOSPHATE 600 MG/4 ML VIAL ONE (13:05)
[2016-11-13] MEDS ORDERED: DEXAMETHASONE SOD PHOSPHATE 4 MG/1 ML VIAL ONE (13:05)
[2016-11-13] MEDS ORDERED: ONDANSETRON 4 MG/2 ML VIAL IVPB PRN (13:58)
[2016-11-13] MEDS ORDERED: ACETAMINOPHEN 325 MG TABLET (FP) PO PRN (13:58)
[2016-11-13] MEDS ORDERED: HEPARIN INFUSION - 500 ML IVPB SCH (14:00)
[2016-11-13] MEDS ORDERED: DEXTROSE 5%-0.45% SALINE 1,000 ML IV SCH (14:00)
[2016-11-13] MEDS ORDERED: oxyCODONE HCL 5 MG TABLET PO PRN ×2 (14:12)
[2016-11-13] MEDS ORDERED: ONDANSETRON 4 MG/2 ML VIAL IVPUSH PRN (14:12)
[2016-11-13] MEDS ORDERED: PROMETHAZINE HCL 25 MG/1 ML VIAL IVPUSH PRN (14:12)
[2016-11-13] MEDS ORDERED: LACTATED RINGERS SOLUTION 1,000 ML IV SCH (14:15)
[2016-11-13] MEDS: oxyCODONE HCL 5 MG TABLET PO PRN ×2 (18:18→22:25)
[2016-11-13] MEDS: SOLIFENACIN SUCCINATE 5 MG TAB (FP) PO SCH (21:26)
[2016-11-13] MEDS: LABETALOL HCL 100 MG TABLET (FP) PO SCH (21:26)
[2016-11-13] MEDS ORDERED: WARFARIN NA 5 MG TABLET (UD) PO SCH (22:00)
[2016-11-14] MEDS ORDERED: PT OWN MED DRAWER 7, Y5N ONE (02:44)
[2016-11-14] MEDS: oxyCODONE HCL 5 MG TABLET PO PRN ×3 (04:06→15:35)
[2016-11-14] MEDS: HEPARIN INFUSION - 500 ML IVPB SCH ×2 (06:00→17:37)
[2016-11-14] MEDS ORDERED: HEPARIN NA (PORCINE) 5,000 UNITS/ML 1ML VIAL ONE (06:04)
[2016-11-14] MEDS: HEPARIN NA (PORCINE) 5,000 UNITS/ML 1ML VIAL IVPUSH PRN (06:08)
[2016-11-14] MEDS: INSULIN SLIDING SCALE (NOVOLOG) 1 VIAL SQ SCH ×4 (06:28→21:52)
[2016-11-14 09:04] LABS: INR 1.1 (0.82-1.09); PROTHROMBIN TIME (PATIENT) 12.3 SEC (10.2-13.0)
[2016-11-14 09:10] LABS: MCH 29.2 pg (25.7-33.7); MCHC 34.1 g/dl (32.0-36.0); MEAN CELL VOLUME 85.8 fl (80-96); MEAN PLT VOLUME 8.4 fl (7.5-11.1); PLATELET COUNT 241 K/MM3 (134-434); RDW 14.9 % (11.6-15.6); WHITE BLOOD COUNT 12.6 K/mm3 (4.0-10.8)
--- NOTE | 2016-11-14 09:22 | PN ---
Progress Note, Physician Chief Complaint: Right breast cancer S/P Right breast wide excision sentenel node biopsy for invasive ductal/lobular carcinoma History of Present Illness: patient is OOB , eating, pain managed with oxycodone prn, followed by Lindsay Quach, hospitalist and master technician, Dr Castano for her PAF and mechanical heart valve. She is currently on heparin bridged with coumadin until therapeutic INR - Current Medication List Current Medications: Active Medications Acetaminophen (Tylenol -) 650 mg PO Q4H PRN PRN Reason: FEVER OR PAIN Amiodarone HCl (Cordarone -) 200 mg PO DAILY [facility] Last Admin: 11/13/16 14:47 Dose: 200 mg Amlodipine Besylate (Norvasc -) 10 mg PO DAILY [facility] Last Admin: 11/13/16 14:47 Dose: 10 mg Atenolol (Tenormin -) 25 mg PO BID [facility] Last Admin: 11/13/16 21:26 Dose: 25 mg Diltiazem HCl (Cardizem Cd -) 240 mg PO DAILY [facility] Last Admin: 11/13/16 14:47 Dose: 240 mg Dextrose/Sodium Chloride (D5-1/2ns -) 1,000 mls @ 100 mls/hr IV ASDIR [facility] Last Admin: 11/13/16 15:23 Dose: Not Given Heparin Sodium/Dextrose (Heparin Infusion -) 500 mls @ 16 mls/hr IVPB TITR SPEEDY ; 800 UNITS/HR PRN Reason: Protocol Last Admin: 11/14/16 06:00 Dose: 20 mls/hr Insulin Aspart (Novolog Vial Sliding Scale -) 1 vial SQ ACHS SPEEDY PRN Reason: Protocol Last Admin: 11/14/16 06:28 Dose: Not Given Labetalol HCl (Normodyne -) 300 mg PO HS [facility] Last Admin: 11/13/16 21:26 Dose: 300 mg Metformin HCl (Glucophage -) 500 mg PO BIDI [facility] Last Admin: 11/13/16 07:10 Dose: Not Given Ondansetron HCl (Zofran Injection) 4 mg IVPB Q6H PRN PRN Reason: NAUSEA Oxycodone HCl (Roxicodone -) 5 mg PO Q4H PRN PRN Reason: PAIN LEVEL 1-5 Last Admin: 11/14/16 04:06 Dose: 5 mg Oxycodone HCl (Roxicodone -) 5 mg PO Q4H PRN PRN Reason: MILD PAIN Oxycodone HCl (Roxicodone -) 10 mg PO Q4H PRN PRN Reason: SEVERE PAIN Quinapril HCl (Accupril -) 40 mg PO DAILY [facility] Last Admin: 11/13/16 14:47 Dose: 40 mg Ranitidine HCl (Zantac -) 150 mg PO DAILY [facility] Last Admin: 11/13/16 10:12 Dose: Not Given Rosuvastatin Calcium (Crestor -) 20 mg PO DAILY [facility] Last Admin: 11/13/16 10:11 Dose: Not Given Solifenacin (Vesicare -) 10 mg PO HS [facility] Last Admin: 11/13/16 21:26 Dose: 10 mg Warfarin Sodium (Coumadin -) 5 mg PO [facility] Last Admin: 11/13/16 21:26 Dose: 5 mg - Objective Vital Signs: Vital Signs Temperature 98.6 F 11/14/16 06:20 Pulse Rate 73 11/14/16 06:20 Respiratory Rate 18 11/14/16 06:20 Blood Pressure 115/58 11/14/16 06:20 O2 Sat by Pulse Oximetry (%) 97 11/14/16 06:20 Constitutional: Yes: No Distress Breast(s): Yes: Other (Right breast minimal echymosis incision intact steristrips in place no signs of bleeding or infection) Labs: INR, PTT INR 1.10 (0.82-1.09) 11/14/16 08:24 Problem List - Problems (1) Breast cancer, right breast Code(s): C50.911 - MALIGNANT NEOPLASM OF UNSP SITE OF RIGHT FEMALE BREAST Qualifiers: Breast location: lower inner quadrant of breast Patient sex: female Assessment/Plan continue SCD OOB continue heparin bridged with coumadin until therapuetic INR followed by cardilogist and hospitalist for Afib and mechanical heart valve cleared for discharge from a surgical standpoint pending cardilogy clearance
[2016-11-14] MEDS: ROSUVASTATIN CA 20 MG TABLET (FP) PO SCH (09:48)
[2016-11-14] MEDS: AMIODARONE HCL 200 MG TABLET (FP) PO SCH (09:48)
[2016-11-14] MEDS: ATENOLOL 25 MG TABLET (FP) PO SCH ×2 (09:48→21:51)
[2016-11-14] MEDS: RANITIDINE HCL 150 MG TABLET (FP) PO SCH (09:48)
[2016-11-14] MEDS: amLODIPine BESYLATE 10 MG TABLET (FP) PO SCH (09:48)
[2016-11-14] MEDS: QUINAPRIL HCL 20 MG TABLET (FP) PO SCH (09:48)
[2016-11-14 09:54] LABS: ANION GAP 10 (8-16); CALCIUM 9.5 mg/dl (8.4-10.2); CO2 22 mmol/L (22-28); GLUCOSE,RANDOM 127 mg/dl (74-106)
--- NOTE | 2016-11-14 09:55 | PN ---
Progress Note, Physician Chief Complaint: alert, sitting up ambulating Tolerated surgery well Back on heparin gtts Received Coumadin 5mg last night - Current Medication List Current Medications: Active Medications Acetaminophen (Tylenol -) 650 mg PO Q4H PRN PRN Reason: FEVER OR PAIN Amiodarone HCl (Cordarone -) 200 mg PO DAILY [facility] Last Admin: 11/13/16 14:47 Dose: 200 mg Amlodipine Besylate (Norvasc -) 10 mg PO DAILY [facility] Last Admin: 11/13/16 14:47 Dose: 10 mg Atenolol (Tenormin -) 25 mg PO BID [facility] Last Admin: 11/13/16 21:26 Dose: 25 mg Diltiazem HCl (Cardizem Cd -) 240 mg PO DAILY [facility] Last Admin: 11/13/16 14:47 Dose: 240 mg Dextrose/Sodium Chloride (D5-1/2ns -) 1,000 mls @ 100 mls/hr IV ASDIR [facility] Last Admin: 11/13/16 15:23 Dose: Not Given Heparin Sodium/Dextrose (Heparin Infusion -) 500 mls @ 16 mls/hr IVPB TITR SPEEDY ; 800 UNITS/HR PRN Reason: Protocol Last Admin: 11/14/16 06:00 Dose: 20 mls/hr Insulin Aspart (Novolog Vial Sliding Scale -) 1 vial SQ ACHS [facility] PRN Reason: Protocol Last Admin: 11/14/16 06:28 Dose: Not Given Labetalol HCl (Normodyne -) 300 mg PO HS [facility] Last Admin: 11/13/16 21:26 Dose: 300 mg Metformin HCl (Glucophage -) 500 mg PO BIDI [facility] Last Admin: 11/13/16 07:10 Dose: Not Given Ondansetron HCl (Zofran Injection) 4 mg IVPB Q6H PRN PRN Reason: NAUSEA Oxycodone HCl (Roxicodone -) 5 mg PO Q4H PRN PRN Reason: PAIN LEVEL 1-5 Last Admin: 11/14/16 04:06 Dose: 5 mg Oxycodone HCl (Roxicodone -) 5 mg PO Q4H PRN PRN Reason: MILD PAIN Oxycodone HCl (Roxicodone -) 10 mg PO Q4H PRN PRN Reason: SEVERE PAIN Quinapril HCl (Accupril -) 40 mg PO DAILY [facility] Last Admin: 11/13/16 14:47 Dose: 40 mg Ranitidine HCl (Zantac -) 150 mg PO DAILY [facility] Last Admin: 11/13/16 10:12 Dose: Not Given Rosuvastatin Calcium (Crestor -) 20 mg PO DAILY [facility] Last Admin: 11/13/16 10:11 Dose: Not Given Solifenacin (Vesicare -) 10 mg PO HS [facility] Last Admin: 11/13/16 21:26 Dose: 10 mg Warfarin Sodium (Coumadin -) 10 mg PO ONCE@1800 ONE Stop: 11/14/16 18:01 - Objective Vital Signs: Vital Signs Temperature 98.1 F 11/14/16 09:44 Pulse Rate 67 11/14/16 09:44 Respiratory Rate 18 11/14/16 09:44 Blood Pressure 105/56 11/14/16 09:44 O2 Sat by Pulse Oximetry (%) 97 11/14/16 06:20 Constitutional: Yes: Calm Eyes: Yes: Conjunctiva Clear Cardiovascular: Yes: Regular Rate and Rhythm (mechanical S1, nl S2. No murmurs) Respiratory: Yes: CTA Bilaterally Gastrointestinal: Yes: Soft (non-tender) Edema: No Peripheral Pulses WNL: Yes Neurological: Yes: Alert, Oriented Labs: CBC, BMP 11/14/16 08:24 INR, PTT INR 1.10 (0.82-1.09) 11/14/16 08:24 Laboratory Tests 11/14/16 11/14/16 11/14/16 04:10 08:24 08:24 WBC 12.6 H D Hgb 11.4 Plt Count 241 INR 1.10 PTT (Actin FS) 45.8 H Sodium Potassium Chloride Carbon Dioxide Anion Gap BUN Creatinine Random Glucose Calcium 11/14/16 08:24 WBC Hgb Plt Count INR PTT (Actin FS) Sodium Pending Potassium Pending Chloride Pending Carbon Dioxide Pending Anion Gap Pending BUN Pending Creatinine Pending Random Glucose Pending Calcium Pending Assessment/Plan IMP: Newly diagnosed breast CA, preop for possible right partial mastectomy and LN dissection Mechanical MVR, PAF on coumadin Admitted for management of anticoagulation preop REC: Cont heparin gtt for bridging INR (goal INR 2.5-3.5 for mechanical MVR). Give Coumadin 10mg x1 tonight, then resume usual home dosing Daily Coags Cont other current medical as BP and HR are well controlled
--- NOTE | 2016-11-14 11:49 | EKG ---
Test Reason : Blood Pressure : / mmHG Vent. Rate : 062 BPM Atrial Rate : 062 BPM P-R Int : 178 ms QRS Dur : 076 ms QT Int : 432 ms P-R-T Axes : -25 145 143 degrees QTc Int : 438 ms NORMAL SINUS RHYTHM LEFT POSTERIOR FASCICULAR BLOCK NONSPECIFIC ST AND T WAVE ABNORMALITY ABNORMAL ECG NO PREVIOUS ECGS AVAILABLE Confirmed by ULYSSES RENEE, VIOLET ([id number]) on 11/14/2016 11:49:12 AM Referred By: Isabella Figueroa Confirmed By:VIOLET ARORA MD
--- NOTE | 2016-11-14 12:25 | PN ---
Physical Exam: SUBJECTIVE: Patient seen and examined, patient reports feeling better, denies chest pain or shortness of breath. OBJECTIVE:patient is a 61 y/o female with a past medical history of paroxysmal afib, mitral valve replacement (mechanical, 1997), rheumatic heart disease, hypertension, right shoulder rotar cuff, hyperlipidemia, and invasive ductal lobular carcinoma of the right breast. Patient was admitted from the emergency department for subthereputic inr. pt is s/p Right breast cancer S/P Right breast wide excision sentenel node biopsy for invasive ductal/lobular carcinoma Vital Signs Period Temp Pulse Resp BP Sys/Solares Pulse Ox Last 24 Hr 98.1 F-98.7 F 53-73 17-20 97-119/47-75 96-99 GENERAL: Thin, Awake, alert, and fully oriented, anxious. HEAD: Normal with no signs of trauma. EYES: Pupils equal, round and reactive to light, extraocular movements intact, sclera anicteric, conjunctiva clear. No lid lag. EARS, NOSE, THROAT: Ears normal, nares patent, oropharynx clear without exudates. Moist mucous membranes. NECK: Normal range of motion, supple without lymphadenopathy, JVD, or masses. LUNGS: Breath sounds equal, clear to auscultation bilaterally. No wheezes, and no crackles. No accessory muscle use. HEART: regular, rate and rhythm, normal S1 and S2 without murmur, rub or gallop. ABDOMEN: Soft, nontender, not distended, normoactive bowel sounds, no guarding, no rebound, no masses. No hepatomegaly or splenomegaly. MUSCULOSKELETAL: Normal range of motion at all joints. No bony deformities or tenderness. No CVA tenderness. UPPER EXTREMITIES: 2+ pulses, warm, well-perfused. No cyanosis. No clubbing. No peripheral edema. LOWER EXTREMITIES: 2+ pulses, warm, well-perfused. No calf tenderness. No peripheral edema. NEUROLOGICAL: Cranial nerves II-XII intact. Normal speech. Normal gait. PSYCHIATRIC: Cooperative. Good eye contact. Appropriate mood and affect. SKIN: Warm, dry, normal turgor, no rashes or lesions noted, normal capillary refill. steri strips to right axilla, no induration, no erythema Laboratory Results - last 24 hr 11/13/16 11/13/16 11/13/16 14:09 21:00 21:55 WBC RBC Hgb Hct MCV MCH MCHC RDW Plt Count MPV INR PTT (Actin FS) 40.5 H Sodium Potassium Chloride Carbon Dioxide Anion Gap BUN Creatinine POC Glucometer 100 158 Random Glucose Calcium 11/14/16 11/14/16 11/14/16 04:10 06:27 08:24 WBC 12.6 H D RBC 3.90 Hgb 11.4 Hct 33.5 MCV 85.8 MCH 29.2 MCHC 34.1 RDW 14.9 Plt Count 241 MPV 8.4 INR PTT (Actin FS) 45.8 H Sodium Potassium Chloride Carbon Dioxide Anion Gap BUN Creatinine POC Glucometer 182 Random Glucose Calcium 11/14/16 11/14/16 08:24 08:24 WBC RBC Hgb Hct MCV MCH MCHC RDW Plt Count MPV INR 1.10 PTT (Actin FS) Sodium 136 Potassium 4.8 D Chloride 104 Carbon Dioxide 22 Anion Gap 10 BUN 22 H D Creatinine 1.0 D POC Glucometer Random Glucose 127 H Calcium 9.5 Active Medications Generic Name Dose Route Start Last Admin Trade Name Freq PRN Reason Stop Dose Admin Acetaminophen 650 mg 11/13/16 13:58 Tylenol - PO Q4H PRN FEVER OR PAIN Amiodarone HCl 200 mg 11/10/16 10:00 11/14/16 09:48 Cordarone - PO 200 mg DAILY SPEEDY Administration Amlodipine Besylate 10 mg 11/10/16 10:00 11/14/16 09:48 Norvasc - PO 10 mg DAILY SPEEDY Administration Atenolol 25 mg 11/09/16 22:00 11/14/16 09:48 Tenormin - PO 25 mg BID SPEEDY Administration Diltiazem HCl 240 mg 11/10/16 10:00 11/14/16 09:48 Cardizem Cd - PO 240 mg DAILY SPEEDY Administration Heparin Sodium/Dextrose 500 mls @ 16 mls/hr 11/13/16 23:21 11/14/16 06:00 Heparin Infusion - IVPB 20 mls/hr TITR SPEEDY Administration Protocol 800 UNITS/HR Insulin Aspart 1 vial 11/09/16 16:30 11/14/16 12:02 Novolog Vial Sliding Scale - SQ Not Given ACHS SPEEDY Protocol Labetalol HCl 300 mg 11/09/16 22:00 11/13/16 21:26 Normodyne - PO 300 mg HS SPEEDY Administration Metformin HCl 500 mg 11/09/16 16:30 11/13/16 07:10 Glucophage - PO Not Given BIDI SPEEDY Ondansetron HCl 4 mg 11/13/16 13:58 Zofran Injection IVPB Q6H PRN NAUSEA Oxycodone HCl 5 mg 11/13/16 13:58 11/14/16 09:47 Roxicodone - PO 5 mg Q4H PRN Administration PAIN LEVEL 1-5 Oxycodone HCl 5 mg 11/13/16 14:12 Roxicodone - PO Q4H PRN MILD PAIN Oxycodone HCl 10 mg 11/13/16 14:12 Roxicodone - PO Q4H PRN SEVERE PAIN Quinapril HCl 40 mg 11/12/16 10:00 11/14/16 09:48 Accupril - PO 40 mg DAILY SPEEDY Administration Ranitidine HCl 150 mg 11/10/16 10:00 11/14/16 09:48 Zantac - PO 150 mg DAILY SPEEDY Administration Rosuvastatin Calcium 20 mg 11/10/16 10:00 11/14/16 09:48 Crestor - PO 20 mg DAILY SPEEDY Administration Solifenacin 10 mg 11/09/16 22:00 11/13/16 21:26 Vesicare - PO 10 mg HS SPEEDY Administration Warfarin Sodium 10 mg 11/14/16 18:00 Coumadin - PO 11/14/16 18:01 ONCE@1800 ONE ASSESSMENT/PLAN: 1) card paroxysmal Afib - pt currently in NSR, strict monitoring - continue amiodarone and atenolol - cardiology consulted and following, Dr Castano, patient's private sheet roller operator - Dr Castano cardiac clearance reviewed recent stress test LV function normal, no ischemia, normal sinus rhythmn s/p mechanical valve - increase coumadin 10mg PO x 1, continue with heparin bridge hyperlipidemia - continue, crestor hypertension - strict b/p monitoring, b/p at goal, continue atenolol and norvasc 2) endo NIDDM - continue to hold metformin, fingersticks achs with regular insulin coverage 3) onc invasive ductal lobular carcinoma of the right breast, s/p right breast wide excision, sental node dissection - Dr Sheffield, breast surgeon, consulted and following f/e/n - low sodium diabetic diet - replete lytes prn ppx - zantac - coumadin - oob - scd dispo: requires inpatient admission Visit type - Emergency Visit Emergency Visit: Yes ED Registration Date: 11/09/16 Care time: The patient presented to the Emergency Department on the above date and was hospitalized for further evaluation of their emergent condition. - New Patient This patient is new to me today: No - Critical Care Critical Care patient: No - Discharge Referral Referred to [facility] Med P.C.: No
--- NOTE | 2016-11-14 15:47 | OP ---
DATE OF OPERATION: 11/13/2016 PREOPERATIVE DIAGNOSIS: Right breast cancer. POSTOPERATIVE DIAGNOSIS: Right breast cancer. PROCEDURE: Mammographic-localized wide excision with sentinel lymph node biopsy. ANESTHESIA: General intubated. ATTENDING SURGEON: Frandy Figueroa MD BUSINESS TEACHER: LAWRENCE Pugh ESTIMATED BLOOD LOSS: Minimal. COMPLICATIONS: None. DESCRIPTION OF PROCEDURE: Patient was made aware of the risks and benefits of the procedure and consented. She was placed in a supine position after going to radiology suite where needle was placed next to the index lesion and Nuclear Medicine where radioactive tracer was injected into the breast. After general anesthesia was induced, the patient was intubated. The operative site was prepped and draped in the usual sterile fashion. Next, 2.5 mL of 1% isosulfan blue was infiltrated into the peritumoral tissues. Waiting approximately 10 minutes, with gentle manual compression, a curvilinear incision was made in the right axilla. Using blunt and sharp dissection, tissues were dissected down to the axillary fat where 4 lymph nodes were identified. Two were blue. One was hot and one was palpated to be a little firm. These were sent for permanent sectioning. Palpation of the rest of the axilla revealed nothing suspicious, and radioactivity levels were less than 10% of the baseline preoperatively. Wound was copiously irrigated with normal saline. Hemostasis maintained by electrocautery. The wound was closed with deep 3-0 Vicryl, followed by a running subcuticular 4-0 Monocryl. The right breast was approached. A periareolar incision was made using electrocautery. Thick skin flaps were made. The needle was drawn to the puncture site and wire to the wound. The tissues around the wire were then sharply excised and submitted with a short suture superior, long suture lateral. Specimen radiograph confirmed the presence of the index lesion. Additional segments were taken with clips at the new margin from the superior, inferior, medial, lateral, deep, and anterior areas. The wound was copiously irrigated with normal saline. Hemostasis maintained by electrocautery. The breast tissue was then taken off the pectoralis muscle at least 6-8 cm in each direction and rotated in to fill the defect with multiple layers of figure-of-8 suture of 2-0 Vicryl. Skin was then closed with deep 3-0 Vicryl, followed by a running subcuticular 4-0 Monocryl. Steri-Strips, sterile bandage, and a compression Timo wrap were then applied. The patient having tolerated the procedure was transferred to the recovery room in excellent condition. FRANDY FIGUEROA M.D. [id number]
[2016-11-14] MEDS ORDERED: WARFARIN NA 10 MG TABLET (FP) PO ONE (18:00)
[2016-11-14] MEDS ORDERED: INSULIN (NOVOLOG) ASPART 100 UNITS/ML 10ML VIAL ONE (21:45)
[2016-11-14] MEDS: LABETALOL HCL 100 MG TABLET (FP) PO SCH (21:50)
[2016-11-14] MEDS: SOLIFENACIN SUCCINATE 5 MG TAB (FP) PO SCH (21:51)
[2016-11-15] MEDS: oxyCODONE HCL 5 MG TABLET PO PRN ×2 (00:39→21:23)
[2016-11-15] MEDS: INSULIN SLIDING SCALE (NOVOLOG) 1 VIAL SQ SCH ×4 (06:18→21:24)
[2016-11-15] MEDS: amLODIPine BESYLATE 10 MG TABLET (FP) PO SCH (09:40)
[2016-11-15] MEDS: RANITIDINE HCL 150 MG TABLET (FP) PO SCH (09:40)
[2016-11-15] MEDS: QUINAPRIL HCL 20 MG TABLET (FP) PO SCH (09:40)
[2016-11-15] MEDS: AMIODARONE HCL 200 MG TABLET (FP) PO SCH (09:40)
[2016-11-15] MEDS: ATENOLOL 25 MG TABLET (FP) PO SCH ×2 (09:40→21:22)
[2016-11-15] MEDS: ROSUVASTATIN CA 20 MG TABLET (FP) PO SCH (09:40)
[2016-11-15 09:42] LABS: INR 1.15 (0.82-1.09); PROTHROMBIN TIME (PATIENT) 12.8 SEC (10.2-13.0)
--- NOTE | 2016-11-15 11:11 | PN ---
Physical Exam: SUBJECTIVE: Patient seen and examined, reports feeling well, ambulatory at bedside denies any shortness of breath or chest pain, pt denies any tactile fever. OBJECTIVE:patient is a 61 y/o female with a past medical history of paroxysmal afib, mitral valve replacement (mechanical, 1997), rheumatic heart disease, hypertension, right shoulder rotar cuff, hyperlipidemia, and invasive ductal lobular carcinoma of the right breast. Patient was admitted from the emergency department for subthereputic inr. pt is s/p Right breast cancer S/P Right breast wide excision sentenel node biopsy for invasive ductal/lobular carcinoma (11/13) Vital Signs Period Temp Pulse Resp BP Sys/Solares Pulse Ox Last 24 Hr 98.0 F-98.6 F 53-66 18-19 95-109/45-56 97-100 GENERAL: Thin, Awake, alert, and fully oriented, anxious. HEAD: Normal with no signs of trauma. EYES: Pupils equal, round and reactive to light, extraocular movements intact, sclera anicteric, conjunctiva clear. No lid lag. EARS, NOSE, THROAT: Ears normal, nares patent, oropharynx clear without exudates. Moist mucous membranes. NECK: Normal range of motion, supple without lymphadenopathy, JVD, or masses. LUNGS: Breath sounds equal, clear to auscultation bilaterally. No wheezes, and no crackles. No accessory muscle use. HEART: regular, rate and rhythm, normal S1 and S2 without murmur, rub or gallop. ABDOMEN: Soft, nontender, not distended, normoactive bowel sounds, no guarding, no rebound, no masses. No hepatomegaly or splenomegaly. MUSCULOSKELETAL: Normal range of motion at all joints. No bony deformities or tenderness. No CVA tenderness. UPPER EXTREMITIES: 2+ pulses, warm, well-perfused. No cyanosis. No clubbing. No peripheral edema. LOWER EXTREMITIES: 2+ pulses, warm, well-perfused. No calf tenderness. No peripheral edema. NEUROLOGICAL: Cranial nerves II-XII intact. Normal speech. Normal gait. PSYCHIATRIC: Cooperative. Good eye contact. Appropriate mood and affect. SKIN: Warm, dry, normal turgor, no rashes or lesions noted, normal capillary refill. steri strips to right axilla, no induration, no erythema Laboratory Results - last 24 hr 11/14/16 11/14/16 11/14/16 11:59 13:00 16:22 INR PTT (Actin FS) 50.9 H POC Glucometer 158 122 11/14/16 11/15/16 11/15/16 21:37 06:04 08:03 INR 1.15 PTT (Actin FS) POC Glucometer 173 145 11/15/16 08:03 INR PTT (Actin FS) 52.6 H POC Glucometer Active Medications Generic Name Dose Route Start Last Admin Trade Name Freq PRN Reason Stop Dose Admin Acetaminophen 650 mg 11/13/16 13:58 Tylenol - PO Q4H PRN FEVER OR PAIN Amiodarone HCl 200 mg 11/10/16 10:00 11/15/16 09:40 Cordarone - PO 200 mg DAILY SPEEDY Administration Amlodipine Besylate 10 mg 11/10/16 10:00 11/15/16 09:40 Norvasc - PO 10 mg DAILY SPEEDY Administration Atenolol 25 mg 11/09/16 22:00 11/15/16 09:40 Tenormin - PO 25 mg BID SPEEDY Administration Diltiazem HCl 240 mg 11/10/16 10:00 11/15/16 09:40 Cardizem Cd - PO 240 mg DAILY SPEEDY Administration Heparin Sodium/Dextrose 500 mls @ 16 mls/hr 11/13/16 23:21 11/14/16 17:37 Heparin Infusion - IVPB 20 mls/hr TITR SPEEDY Administration Protocol 800 UNITS/HR Insulin Aspart 1 vial 11/09/16 16:30 11/15/16 06:18 Novolog Vial Sliding Scale - SQ Not Given ACHS SPEEDY Protocol Labetalol HCl 300 mg 11/09/16 22:00 11/14/16 21:50 Normodyne - PO 300 mg HS SPEEDY Administration Metformin HCl 500 mg 11/09/16 16:30 11/13/16 07:10 Glucophage - PO Not Given BIDI SPEEDY Ondansetron HCl 4 mg 11/13/16 13:58 Zofran Injection IVPB Q6H PRN NAUSEA Oxycodone HCl 5 mg 11/13/16 13:58 11/15/16 00:39 Roxicodone - PO 5 mg Q4H PRN Administration PAIN LEVEL 1-5 Oxycodone HCl 5 mg 11/13/16 14:12 11/15/16 06:39 Roxicodone - PO 5 mg Q4H PRN Administration MILD PAIN Oxycodone HCl 10 mg 11/13/16 14:12 Roxicodone - PO Q4H PRN SEVERE PAIN Quinapril HCl 40 mg 11/12/16 10:00 11/15/16 09:40 Accupril - PO 40 mg DAILY SPEEDY Administration Ranitidine HCl 150 mg 11/10/16 10:00 11/15/16 09:40 Zantac - PO 150 mg DAILY SPEEDY Administration Rosuvastatin Calcium 20 mg 11/10/16 10:00 11/15/16 09:40 Crestor - PO 20 mg DAILY SPEEDY Administration Solifenacin 10 mg 11/09/16 22:00 11/14/16 21:51 Vesicare - PO 10 mg HS SPEEDY Administration ASSESSMENT/PLAN: ) card paroxysmal Afib - pt currently in NSR, strict monitoring - continue amiodarone and atenolol - cardiology consulted and following, Dr Castano, patient's private credit balance specialist - Dr Castano cardiac clearance reviewed recent stress test LV function normal, no ischemia, normal sinus rhythmn s/p mechanical valve - increase coumadin 7.5 PO x 1, continue with heparin bridge hyperlipidemia - continue, crestor hypertension - strict b/p monitoring, b/p at goal, continue atenolol and norvasc 2) endo NIDDM - continue to hold metformin, fingersticks achs with regular insulin coverage 3) onc invasive ductal lobular carcinoma of the right breast, s/p right breast wide excision, sental node dissection - Dr Sheffield, breast surgeon, consulted and following f/e/n - low sodium diabetic diet - replete lytes prn ppx - zantac - coumadin - oob - scd dispo: requires inpatient admission Visit type - Emergency Visit Emergency Visit: Yes ED Registration Date: 11/09/16 Care time: The patient presented to the Emergency Department on the above date and was hospitalized for further evaluation of their emergent condition. - New Patient This patient is new to me today: No - Critical Care Critical Care patient: No - Discharge Referral Referred to [facility] Med P.C.: No
[2016-11-15] MEDS: HEPARIN INFUSION - 500 ML IVPB SCH ×2 (17:36→17:37)
[2016-11-15] MEDS ORDERED: WARFARIN NA 7.5 MG TABLET (FP) PO ONE (18:00)
[2016-11-15] MEDS: LABETALOL HCL 100 MG TABLET (FP) PO SCH (21:22)
[2016-11-15] MEDS: SOLIFENACIN SUCCINATE 5 MG TAB (FP) PO SCH (21:22)
[2016-11-16] MEDS: INSULIN SLIDING SCALE (NOVOLOG) 1 VIAL SQ SCH ×4 (07:07→23:54)
[2016-11-16 07:54] LABS: BASOPHIL 2.3 % (0-2.0); EOSINOPHIL 1.1 % (0-4.5); MCH 28.7 pg (25.7-33.7); MCHC 33.3 g/dl (32.0-36.0); MEAN CELL VOLUME 86.2 fl (80-96); MEAN PLT VOLUME 8.5 fl (7.5-11.1); NEUTROPHILS 54.6 % (42.8-82.8); PLATELET COUNT 240 K/MM3 (134-434); RDW 15.3 % (11.6-15.6); WHITE BLOOD COUNT 7.5 K/mm3 (4.0-10.8)
[2016-11-16 08:05] LABS: INR 1.57 (0.82-1.09); PROTHROMBIN TIME (PATIENT) 17.4 SEC (10.2-13.0)
--- NOTE | 2016-11-16 08:38 | PN ---
Physical Exam: SUBJECTIVE: Patient seen and examined, patient reports feeling well, denies any chest pain or shortness of breath, pt reports pain to right axilla upon movement. OBJECTIVE: patient is a 61 y/o female with a past medical history of paroxysmal afib, mitral valve replacement (mechanical, 1997), rheumatic heart disease, hypertension, right shoulder rotar cuff, hyperlipidemia, and invasive ductal lobular carcinoma of the right breast. Patient was admitted from the emergency department for subthereputic inr. pt is s/p Right breast cancer S/P Right breast wide excision sentenel node biopsy for invasive ductal/lobular carcinoma (11/13) Vital Signs Period Temp Pulse Resp BP Sys/Solares Pulse Ox Last 24 Hr 97.4 F-98.6 F 56-61 18-18 101-118/54-59 94-100 GENERAL: The patient is awake, alert, and fully oriented, in no acute distress. HEAD: Normal with no signs of trauma. EYES: PERRL, extraocular movements intact, sclera anicteric, conjunctiva clear. No ptosis. ENT: Ears normal, nares patent, oropharynx clear without exudates, moist mucous membranes. NECK: Trachea midline, full range of motion, supple. LUNGS: Breath sounds equal, clear to auscultation bilaterally, no wheezes, no crackles, no accessory muscle use. HEART: Regular rate and rhythm, S1, S2 without murmur, rub or gallop. ABDOMEN: Soft, nontender, nondistended, normoactive bowel sounds, no guarding, no rebound, no hepatosplenomegaly, no masses. EXTREMITIES: 2+ pulses, warm, well-perfused, no edema. NEUROLOGICAL: Cranial nerves II through XII grossly intact. Normal speech, gait not observed. PSYCH: Normal mood, normal affect. SKIN: Warm, dry, normal turgor, no rashes or lesions noted steri strips noted right axilla no drainage noted, steri strips noted to right areola no drainage noted, no induration, no erythema Laboratory Results - last 24 hr 11/15/16 11/15/16 11/15/16 08:03 08:03 16:44 WBC RBC Hgb Hct MCV MCH MCHC RDW Plt Count MPV Neutrophils % Lymphocytes % Monocytes % Eosinophils % Basophils % INR 1.15 PTT (Actin FS) 52.6 H POC Glucometer 105 11/15/16 11/16/16 11/16/16 20:52 06:27 07:22 WBC 7.5 D RBC 4.18 Hgb 12.0 Hct 36.0 MCV 86.2 MCH 28.7 MCHC 33.3 RDW 15.3 Plt Count 240 MPV 8.5 Neutrophils % 54.6 Lymphocytes % 34.0 Monocytes % 8.0 Eosinophils % 1.1 Basophils % 2.3 H INR PTT (Actin FS) POC Glucometer 125 112 11/16/16 11/16/16 07:22 07:22 WBC RBC Hgb Hct MCV MCH MCHC RDW Plt Count MPV Neutrophils % Lymphocytes % Monocytes % Eosinophils % Basophils % INR 1.57 H D PTT (Actin FS) 67.0 H POC Glucometer Active Medications Generic Name Dose Route Start Last Admin Trade Name Freq PRN Reason Stop Dose Admin Acetaminophen 650 mg 11/13/16 13:58 Tylenol - PO Q4H PRN FEVER OR PAIN Amiodarone HCl 200 mg 11/10/16 10:00 11/15/16 09:40 Cordarone - PO 200 mg DAILY SPEEDY Administration Amlodipine Besylate 10 mg 11/10/16 10:00 11/15/16 09:40 Norvasc - PO 10 mg DAILY SPEEDY Administration Atenolol 25 mg 11/09/16 22:00 11/15/16 21:22 Tenormin - PO 25 mg BID SPEEDY Administration Diltiazem HCl 240 mg 11/10/16 10:00 11/15/16 09:40 Cardizem Cd - PO 240 mg DAILY SPEEDY Administration Heparin Sodium/Dextrose 500 mls @ 16 mls/hr 11/13/16 23:21 11/15/16 17:37 Heparin Infusion - IVPB 20 mls/hr TITR SPEEDY Administration Protocol 800 UNITS/HR Insulin Aspart 1 vial 11/09/16 16:30 11/16/16 07:07 Novolog Vial Sliding Scale - SQ Not Given ACHS SPEEDY Protocol Labetalol HCl 300 mg 11/09/16 22:00 11/15/16 21:22 Normodyne - PO 300 mg HS SPEEDY Administration Metformin HCl 500 mg 11/09/16 16:30 11/13/16 07:10 Glucophage - PO Not Given BIDI SPEEDY Ondansetron HCl 4 mg 11/13/16 13:58 Zofran Injection IVPB Q6H PRN NAUSEA Oxycodone HCl 5 mg 11/13/16 13:58 11/15/16 21:23 Roxicodone - PO 5 mg Q4H PRN Administration PAIN LEVEL 1-5 Oxycodone HCl 5 mg 11/13/16 14:12 11/15/16 06:39 Roxicodone - PO 5 mg Q4H PRN Administration MILD PAIN Oxycodone HCl 10 mg 11/13/16 14:12 11/16/16 08:17 Roxicodone - PO 5 mg Q4H PRN Administration SEVERE PAIN Quinapril HCl 40 mg 11/12/16 10:00 11/15/16 09:40 Accupril - PO 40 mg DAILY SPEEDY Administration Ranitidine HCl 150 mg 11/10/16 10:00 11/15/16 09:40 Zantac - PO 150 mg DAILY SPEEDY Administration Rosuvastatin Calcium 20 mg 11/10/16 10:00 11/15/16 09:40 Crestor - PO 20 mg DAILY SPEEDY Administration Solifenacin 10 mg 11/09/16 22:00 11/15/16 21:22 Vesicare - PO 10 mg HS SPEEDY Administration IMAGING Dr Castano cardiac clearance reviewed recent stress test LV function normal , no ischemia, normal sinus rhythmn s/p mechanical valve ASSESSMENT/PLAN: 1) card paroxysmal Afib - pt currently in NSR, strict monitoring - continue amiodarone and atenolol - cardiology consulted and following, Dr Castano, patient's private tube depatcher - subthereputic inr increase coumadin to 8mg and continue with heparin bridge hyperlipidemia - continue, crestor hypertension - strict b/p monitoring, b/p at goal, continue atenolol and norvasc 2) endo NIDDM - continue to hold metformin, fingersticks achs with regular insulin coverage 3) onc invasive ductal lobular carcinoma of the right breast, s/p right breast wide excision, sental node dissection - Dr Sheffield, breast surgeon, consulted and following f/e/n - low sodium diabetic diet - replete lytes prn ppx - zantac - coumadin with heparin bridge - oob - scd dispo: requires inpatient admission Visit type - Emergency Visit Emergency Visit: Yes ED Registration Date: 11/09/16 Care time: The patient presented to the Emergency Department on the above date and was hospitalized for further evaluation of their emergent condition. - New Patient This patient is new to me today: No - Critical Care Critical Care patient: No - Discharge Referral Referred to [facility] Med P.C.: No
[2016-11-16] MEDS: QUINAPRIL HCL 20 MG TABLET (FP) PO SCH (09:21)
[2016-11-16] MEDS: AMIODARONE HCL 200 MG TABLET (FP) PO SCH (09:24)
[2016-11-16] MEDS: amLODIPine BESYLATE 10 MG TABLET (FP) PO SCH (09:25)
[2016-11-16] MEDS: ATENOLOL 25 MG TABLET (FP) PO SCH ×2 (09:25→21:31)
[2016-11-16] MEDS: RANITIDINE HCL 150 MG TABLET (FP) PO SCH (09:26)
[2016-11-16] MEDS: ROSUVASTATIN CA 20 MG TABLET (FP) PO SCH (09:27)
[2016-11-16] MEDS ORDERED: WARFARIN NA 3 MG TABLET ONE (17:06)
[2016-11-16] MEDS ORDERED: WARFARIN NA 5 MG TABLET (UD) ONE (17:06)
[2016-11-16] MEDS ORDERED: oxyCODONE HCL 5 MG TABLET ONE ×2 (17:07→23:16)
[2016-11-16] MEDS ORDERED: WARFARIN NA 7.5 MG TABLET (FP) PO ONE ×2 (18:00)
[2016-11-16] MEDS ORDERED: WARFARIN NA 3 MG, WARFARIN NA 5 MG PO ONE (18:00)
[2016-11-16] MEDS: LABETALOL HCL 100 MG TABLET (FP) PO SCH (21:31)
[2016-11-16] MEDS: SOLIFENACIN SUCCINATE 5 MG TAB (FP) PO SCH (21:32)
[2016-11-16] MEDS: HEPARIN INFUSION - 500 ML IVPB SCH (23:49)
[2016-11-16] MEDS: metFORMIN HCL 500 MG TABLET (FP) PO SCH (23:55)
[2016-11-17] MEDS: oxyCODONE HCL 5 MG TABLET PO PRN ×2 (00:06→21:58)
[2016-11-17] MEDS: metFORMIN HCL 500 MG TABLET (FP) PO SCH ×2 (06:53→17:08)
[2016-11-17 07:49] LABS: INR 1.8 (0.82-1.09); PROTHROMBIN TIME (PATIENT) 19.9 SEC (10.2-13.0)
--- NOTE | 2016-11-17 09:29 | PN ---
Physical Exam: SUBJECTIVE: Patient seen and examined. Feeling well, no complaints. OBJECTIVE: POD #4 s/p right breast wide excision & sentinel node biopsy for invasive ductal/lobular carcinoma. On heparin bridge to Coumadin (pAF + mechanical valve) Vital Signs Period Temp Pulse Resp BP Sys/Solares Pulse Ox Last 24 Hr 97.9 F-98.6 F 50-62 16-18 79-110/40-54 96-96 GENERAL: The patient is awake, alert, and fully oriented, in no acute distress. HEAD: Normal with no signs of trauma. EYES: PERRL, extraocular movements intact, sclera anicteric, conjunctiva clear. No ptosis. ENT: Ears normal, nares patent, oropharynx clear without exudates, moist mucous membranes. NECK: Trachea midline, full range of motion, supple. LUNGS: Breath sounds equal, clear to auscultation bilaterally, no wheezes, no crackles, no accessory muscle use. HEART: Regular rate and rhythm, mechanical S1, S2. ABDOMEN: Soft, nontender, nondistended, normoactive bowel sounds, no guarding, no rebound, no hepatosplenomegaly, no masses. EXTREMITIES: 2+ pulses, warm, well-perfused, no edema. NEUROLOGICAL: Cranial nerves II through XII grossly intact. Normal speech, gait not observed. PSYCH: Normal mood, normal affect. SKIN: Warm, dry, normal turgor, no rashes or lesions noted. Axillary and areolar incisions clean, dry, intact. Laboratory Results - last 24 hr 11/16/16 11/16/16 11/16/16 11:26 16:23 21:36 INR PTT (Actin FS) POC Glucometer 93 114 117 11/17/16 11/17/16 11/17/16 06:48 07:26 07:26 INR 1.80 H PTT (Actin FS) 73.2 H POC Glucometer 110 Active Medications Generic Name Dose Route Start Last Admin Trade Name Freq PRN Reason Stop Dose Admin Acetaminophen 650 mg 11/13/16 13:58 Tylenol - PO Q4H PRN FEVER OR PAIN Amiodarone HCl 200 mg 11/10/16 10:00 11/16/16 09:24 Cordarone - PO 200 mg DAILY SPEEDY Administration Amlodipine Besylate 10 mg 11/10/16 10:11/16/16 09:25 Norvasc - PO 10 mg DAILY SPEEDY Administration Atenolol 25 mg 11/09/16 22:00 11/16/16 21:31 Tenormin - PO 25 mg BID SPEEDY Administration Diltiazem HCl 240 mg 11/10/16 10:00 11/16/16 09:23 Cardizem Cd - PO 240 mg DAILY SPEEDY Administration Heparin Sodium/Dextrose 500 mls @ 16 mls/hr 11/13/16 23:21 11/16/16 23:49 Heparin Infusion - IVPB 20 mls/hr TITR SPEEDY Administration Protocol 800 UNITS/HR Insulin Aspart 1 vial 11/09/16 16:30 11/16/16 23:54 Novolog Vial Sliding Scale - SQ Not Given ACHS SPEEDY Protocol Labetalol HCl 300 mg 11/09/16 22:00 11/16/16 21:31 Normodyne - PO 300 mg HS SPEEDY Administration Metformin HCl 500 mg 11/09/16 16:30 11/17/16 06:53 Glucophage - PO 500 mg BIDI SPEEDY Administration Ondansetron HCl 4 mg 11/13/16 13:58 Zofran Injection IVPB Q6H PRN NAUSEA Oxycodone HCl 5 mg 11/16/16 23:10 11/17/16 00:06 Roxicodone - PO 5 mg Q4H PRN Administration PAIN Quinapril HCl 40 mg 11/12/16 10:00 11/16/16 09:21 Accupril - PO 40 mg DAILY SPEEYD Administration Ranitidine HCl 150 mg 11/10/16 10:00 11/16/16 09:26 Zantac - PO 150 mg DAILY SPEEDY Administration Rosuvastatin Calcium 20 mg 11/10/16 10:00 11/16/16 09:27 Crestor - PO 20 mg DAILY SPEEDY Administration Solifenacin 10 mg 11/09/16 22:00 11/16/16 21:32 Vesicare - PO 10 mg HS SPEEDY Administration ASSESSMENT/PLAN: 1. CARD pAF -In NSR -Continue amiodarone -Hold labetolol today for bradycardia -Heparin bridge to Coumadin Mechanical mitral valve -Goal INR 2.5 -Coumadin increased to 8mg -INR today 1.8 HTN -Hold amlodipine and labetolol today for borderline hypotension HLD -Continue atorvastatin 2. ENDO NIDDM -Continue Metformin -Can stop fingersticks 3. BREAST -POD #3 -Surgery following 4. F/E/N -Low sodium, diabetic diet -Replete lytes prn 5. Ppx -Oob -Heparin bridge to Coumadin -No indication for GI ppx Dispo: Requires inpatient services. Visit type - Emergency Visit Emergency Visit: Yes ED Registration Date: 11/09/16 Care time: The patient presented to the Emergency Department on the above date and was hospitalized for further evaluation of their emergent condition. - New Patient This patient is new to me today: Yes Date on this admission: 11/18/16 - Critical Care Critical Care patient: No - Discharge Referral Referred to [facility] Med P.C.: No
[2016-11-17] MEDS: INSULIN SLIDING SCALE (NOVOLOG) 1 VIAL SQ SCH (09:36)
[2016-11-17] MEDS: AMIODARONE HCL 200 MG TABLET (FP) PO SCH (09:39)
[2016-11-17] MEDS: ROSUVASTATIN CA 20 MG TABLET (FP) PO SCH (09:39)
[2016-11-17] MEDS: RANITIDINE HCL 150 MG TABLET (FP) PO SCH (09:39)
[2016-11-17] MEDS: ATENOLOL 25 MG TABLET (FP) PO SCH ×2 (15:45→21:33)
[2016-11-17] MEDS: QUINAPRIL HCL 20 MG TABLET (FP) PO SCH (15:45)
[2016-11-17] MEDS: amLODIPine BESYLATE 10 MG TABLET (FP) PO SCH (15:45)
[2016-11-17] MEDS ORDERED: metFORMIN HCL 500 MG TABLET (FP) PO SCH (16:30)
[2016-11-17] MEDS: LABETALOL HCL 100 MG TABLET (FP) PO SCH (21:33)
[2016-11-17] MEDS: SOLIFENACIN SUCCINATE 5 MG TAB (FP) PO SCH (22:07)
[2016-11-18] MEDS: HEPARIN INFUSION - 500 ML IVPB SCH (01:37)
[2016-11-18] MEDS: metFORMIN HCL 500 MG TABLET (FP) PO SCH ×2 (06:34→16:42)
[2016-11-18 07:54] LABS: PLATELET COUNT 224 K/MM3 (134-434); WHITE BLOOD COUNT 6.7 K/mm3 (4.0-10.8)
[2016-11-18 08:06] LABS: EOSINOPHIL 3.2 % (0-4.5); MCH 29.5 pg (25.7-33.7); MCHC 33.8 g/dl (32.0-36.0); MEAN CELL VOLUME 87.4 fl (80-96); MEAN PLT VOLUME 8.9 fl (7.5-11.1); NEUTROPHILS 41.5 % (42.8-82.8); RDW 15.1 % (11.6-15.6)
[2016-11-18 08:23] LABS: ANION GAP 7 (8-16); CALCIUM 9.7 mg/dl (8.4-10.2); CO2 26 mmol/L (22-28); CREATININE 0.9 mg/dl (0.6-1.3); GLUCOSE,RANDOM 95 mg/dl (74-106)
[2016-11-18 08:24] LABS: INR 2.09 (0.82-1.09); PROTHROMBIN TIME (PATIENT) 23.1 SEC (10.2-13.0)
--- NOTE | 2016-11-18 09:12 | PN ---
Physical Exam: SUBJECTIVE: Patient seen and examined. Feels well. Has some incisional pain which is well-controlled with her medication regimen. OBJECTIVE: INR 2.09 Vital Signs Period Temp Pulse Resp BP Sys/Solares Pulse Ox Last 24 Hr 97.7 F-98.7 F 52-64 16-20 91-126/43-64 98-100 GENERAL: The patient is awake, alert, and fully oriented, in no acute distress. HEAD: Normal with no signs of trauma. EYES: PERRL, extraocular movements intact, sclera anicteric, conjunctiva clear. No ptosis. ENT: Ears normal, nares patent, oropharynx clear without exudates, moist mucous membranes. NECK: Trachea midline, full range of motion, supple. LUNGS: Breath sounds equal, clear to auscultation bilaterally, no wheezes, no crackles, no accessory muscle use. HEART: Regular rate and rhythm, mechanical S1. ABDOMEN: Soft, nontender, nondistended, normoactive bowel sounds, no guarding, no rebound, no hepatosplenomegaly, no masses. EXTREMITIES: 2+ pulses, warm, well-perfused, no edema. NEUROLOGICAL: Cranial nerves II through XII grossly intact. Normal speech, gait not observed. PSYCH: Normal mood, normal affect. SKIN: Warm, dry, normal turgor, no rashes or lesions noted. Right aereolar and axillary incisions clean, dry, intact. Laboratory Results - last 24 hr 11/18/16 11/18/16 11/18/16 06:00 06:00 06:00 WBC 6.7 RBC 4.11 Hgb 12.1 Hct 35.9 MCV 87.4 MCH 29.5 MCHC 33.8 RDW 15.1 Plt Count 224 MPV 8.9 Neutrophils % 41.5 L D Lymphocytes % 42.8 H D Monocytes % 11.5 H Eosinophils % 3.2 D Basophils % 1.0 INR 2.09 H PTT (Actin FS) Sodium 137 Potassium 4.3 Chloride 104 Carbon Dioxide 26 Anion Gap 7 L BUN 14 D Creatinine 0.9 Random Glucose 95 D Calcium 9.7 11/18/16 06:01 WBC RBC Hgb Hct MCV MCH MCHC RDW Plt Count MPV Neutrophils % Lymphocytes % Monocytes % Eosinophils % Basophils % INR PTT (Actin FS) 56.2 H Sodium Potassium Chloride Carbon Dioxide Anion Gap BUN Creatinine Random Glucose Calcium Active Medications Generic Name Dose Route Start Last Admin Trade Name Freq PRN Reason Stop Dose Admin Acetaminophen 650 mg 11/13/16 13:58 11/17/16 09:39 Tylenol - PO 650 mg Q4H PRN Administration FEVER OR PAIN Amiodarone HCl 200 mg 11/10/16 10:00 11/17/16 09:39 Cordarone - PO 200 mg DAILY SPEEDY Administration Amlodipine Besylate 10 mg 11/10/16 10:00 11/17/16 15:45 Norvasc - PO Not Given DAILY [facility] Atenolol 25 mg 11/09/16 22:00 11/17/16 21:33 Tenormin - PO 25 mg BID SPEEDY Administration Diltiazem HCl 240 mg 11/10/16 10:00 11/17/16 15:45 Cardizem Cd - PO Not Given DAILY [facility] Heparin Sodium/Dextrose 500 mls @ 16 mls/hr 11/13/16 23:21 11/18/16 01:37 Heparin Infusion - IVPB 20 mls/hr TITR SPEEDY Administration Protocol 800 UNITS/HR Labetalol HCl 300 mg 11/09/16 22:00 11/17/16 21:33 Normodyne - PO 300 mg HS SPEEDY Administration Metformin HCl 500 mg 11/09/16 16:30 11/18/16 06:34 Glucophage - PO 500 mg BIDI SPEEDY Administration Ondansetron HCl 4 mg 11/13/16 13:58 Zofran Injection IVPB Q6H PRN NAUSEA Oxycodone HCl 5 mg 11/16/16 23:10 11/17/16 21:58 Roxicodone - PO 5 mg Q4H PRN Administration PAIN Quinapril HCl 40 mg 11/12/16 10:00 11/17/16 15:45 Accupril - PO Not Given DAILY SPEEDY Rosuvastatin Calcium 20 mg 11/10/16 10:00 11/17/16 09:39 Crestor - PO 20 mg DAILY SPEEDY Administration Solifenacin 10 mg 11/09/16 22:00 11/17/16 22:07 Vesicare - PO 10 mg HS SPEEDY Administration ASSESSMENT/PLAN: 1. CARD pAF -In NSR -Continue amiodarone -Hold labetolol today for bradycardia -Heparin bridge to Coumadin Mechanical mitral valve -Goal INR 2.5 -Coumadin increased to 8mg -INR today 1.8 HTN -Normotensive today - resume diltiazem and atenolol, continue to hold Lisinopril , labetolol and Norvasc. Unclear why patient would be on both labetolol and atenolol. HLD -Continue atorvastatin 2. ENDO NIDDM -Continue Metformin -Can stop fingersticks 3. BREAST -POD #3 -Surgery following 4. F/E/N -Low sodium, diabetic diet -Replete lytes prn 5. Ppx -Oob -Heparin bridge to Coumadin -No indication for GI ppx Dispo: Requires inpatient services. Likely dc tomorrow if INR >/= 2.5. Visit type - Emergency Visit Emergency Visit: No - New Patient This patient is new to me today: No - Critical Care Critical Care patient: No - Discharge Referral Referred to [facility] Med P.C.: No
[2016-11-18] MEDS: ROSUVASTATIN CA 20 MG TABLET (FP) PO SCH (09:58)
[2016-11-18] MEDS: AMIODARONE HCL 200 MG TABLET (FP) PO SCH (09:58)
[2016-11-18] MEDS: oxyCODONE HCL 5 MG TABLET PO PRN ×3 (09:58→23:42)
[2016-11-18] MEDS: ATENOLOL 25 MG TABLET (FP) PO SCH ×2 (09:59→21:45)
[2016-11-18] MEDS ORDERED: WARFARIN NA 7.5 MG TABLET (FP) PO ONE ×2 (10:09→18:00)
[2016-11-18] MEDS ORDERED: WARFARIN NA 5 MG, WARFARIN NA 3 MG PO ONE (18:00)
[2016-11-18] MEDS ORDERED: WARFARIN NA 5 MG TABLET (UD) ONE (18:39)
[2016-11-18] MEDS ORDERED: WARFARIN NA 3 MG TABLET ONE (18:39)
[2016-11-18] MEDS: SOLIFENACIN SUCCINATE 5 MG TAB (FP) PO SCH (21:45)
[2016-11-19] MEDS: metFORMIN HCL 500 MG TABLET (FP) PO SCH ×2 (07:13→16:08)
[2016-11-19] MEDS: oxyCODONE HCL 5 MG TABLET PO PRN ×3 (09:19→22:55)
[2016-11-19] MEDS: ROSUVASTATIN CA 20 MG TABLET (FP) PO SCH (09:19)
[2016-11-19] MEDS: AMIODARONE HCL 200 MG TABLET (FP) PO SCH (09:19)
[2016-11-19] MEDS: ATENOLOL 25 MG TABLET (FP) PO SCH ×2 (09:26→22:52)
[2016-11-19] MEDS: QUINAPRIL HCL 20 MG TABLET (FP) PO SCH (09:28)
[2016-11-19] MEDS: amLODIPine BESYLATE 10 MG TABLET (FP) PO SCH (09:28)
[2016-11-19 09:54] LABS: INR 2.29 (0.82-1.09); PROTHROMBIN TIME (PATIENT) 25.2 SEC (10.2-13.0)
[2016-11-19] MEDS ORDERED: POLYETHYLENE GLYCOL 3350 119 GM BTL PO ONE (10:00)
--- NOTE | 2016-11-19 10:22 | PATH ---
Surgical Pathology Report Patient Name: JARAD KRISHNA Med. Rec. #: [id number] /Age/Gender: 1955 (Age: 61) / F Account: [id number] Location: [facility] Taken: 11/13/2016 Received: 11/13/2016 Reported: 11/19/2016 Physicians: Isabella Figueroa M.D. Specimen(s) Received A: RIGHT AXILLARY SENTINEL NODES B: RIGHT BREAST WIDE EXCISION C: RIGHT BREAST DEEP MARGIN D: RIGHT BREAST SUPERIOR MARGIN E: RIGHT BREAST LATERAL MARGIN F: RIGHT BREAST MEDIAL MARGIN G: RIGHT BREAST INFERIOR MARGIN H: RIGHT BREAST ANTERIOR MARGIN Clinical History Right breast cancer Final Diagnosis A. SENTINEL LYMPH NODE, RIGHT AXILLARY, BIOPSY: FOUR LYMPH NODES NEGATIVE FOR METASTATIC CARCINOMA BY H&E AND AE1/AE3 KERATIN IMMUNOSTAIN (0/4). Comment: Immunohistochemical stain for Ae/Ae3 keratin was performed and interpreted at [facility] on blocks A1-4. B. BREAST, RIGHT, WIDE EXCISION: INVASIVE MODERATE CARCINOMA WITH MIXED DUCTAL AND LOBULAR FEATURES, NUCLEAR GRADE 2. INVASIVE CARCINOMA SIZE AND FOCALITY: SINGLE FOCUS IN THIS SPECIMEN, 0.9 CM. MAMMARY CARCINOMA IN SITU WITH MIXED DUCTAL AND LOBULAR FEATURES, NUCLEAR GRADE 1-2. IN SITU CARCINOMA EXTENT: MINOR (<25%), PRESENT IN ASSOCIATION WITH INVASIVE CARCINOMA AND IS PRESENT FOCALLY AWAY FROM IT. SURGICAL RESECTION MARGINS: NEGATIVE FOR INVASIVE CARCINOMA; IN SITU CARCINOMA IS <1MM FROM THE ANTERIOR ASPECT OF THIS SPECIMEN AND 1.5 MM FROM THE DEEP ASPECT (REFER TO PARTS C-H FOR THE FINAL RESECTION MARGINS). PREVIOUS BIOPSY SITE CHANGES PRESENT. LYMPHOVASCULAR INVASION: NOT DEFINITIVELY IDENTIFIED. PERINEURAL INVASION: NOT IDENTIFIED. SURROUNDING BREAST TISSUE: FIBROCYSTIC CHANGE WITH FOCAL USUAL DUCTAL HYPERPLASIA. PATHOLOGIC STAGING: mpT1b pN0(sn); ALSO REFER TO CHECKLIST BELOW. RECEPTOR STATUS: REFER TO CHECKLIST BELOW. C. BREAST, RIGHT, DEEP MARGIN, EXCISION: BENIGN FATTY TISSUE. NEGATIVE FOR INVASIVE OR IN SITU CARCINOMA. D. BREAST, RIGHT, SUPERIOR MARGIN, EXCISION: FOCI OF ATYPICAL LOBULAR HYPERPLASIA (ALH). FIBROCYSTIC CHANGE WITH FOCAL USUAL DUCTAL HYPERPLASIA AND COLUMNAR CELLS. NEGATIVE FOR INVASIVE CARCINOMA OR IN SITU CARCINOMA. E. BREAST, RIGHT, LATERAL MARGIN, EXCISION: FOCAL ATYPICAL LOBULAR HYPERPLASIA (ALH) WITH FOCAL MICROCALCIFICATIONS. SMALL INTRADUCTAL PAPILLOMA. NEGATIVE FOR INVASIVE OR IN SITU CARCINOMA. F. BREAST, RIGHT, MEDIAL MARGIN, EXCISION: INVASIVE MAMMARY CARCINOMA WITH DUCTAL AND LOBULAR FEATURES, NUCLEAR GRADE 2. TUMOR SIZE: 1.5 MM. MAMMARY CARCINOMA IN SITU WITH DUCTAL AND LOBULAR FEATURES ALSO PRESENT. FOCAL ATYPICAL LOBULAR HYPERPLASIA (ALH). INVASIVE CARCINOMA IS 4 MM AWAY FROM THE FINAL MEDIAL RESECTION MARGIN. IN SITU CARCINOMA IS 2 MM AWAY FROM THE FINAL MEDIAL RESECTION MARGIN G. BREAST, RIGHT, INFERIOR MARGIN, EXCISION: INVASIVE MAMMARY CARCINOMA WITH DUCTAL AND LOBULAR FEATURES, NUCLEAR GRADE 2. TUMOR SIZE: 0.5 CM MAMMARY CARCINOMA IN SITU WITH DUCTAL AND LOBULAR FEATURES ALSO PRESENT. FOCAL ATYPICAL DUCTAL HYPERPLASIA (ADH) AND FOCAL ATYPICAL LOBULAR HYPERPLASIA (ALH) ALSO PRESENT. INVASIVE CARCINOMA IS 0.7 MM FROM THE FINAL INFERIOR MARGIN. IN SITU CARCINOMA IS <0.5 MM FROM THE FINAL INFERIOR MARGIN. H. BREAST, RIGHT, ANTERIOR MARGIN, EXCISION: FIBROCYSTIC CHANGE WITH FOCAL USUAL DUCTAL HYPERPLASIA, DUCT DILATATION AND STROMAL FIBROSIS. NEGATIVE FOR INVASIVE OR IN SITU CARCINOMA. Comment: Immunohistochemical stain for E-Cadherin performed and interpreted at [facility] on blocks B1, E1, and G3 shows heterogenous staining pattern with weak to moderate membranous staining in a subset of cells in invasive and in situ carcinoma, similar to the staining pattern seen in the prior biopsy ([id number]) supporting overlapping lobular and ductal phenotype. Comments Breast Invasive Carcinoma: Surgical Pathology Cancer Case Summary Based on AJCC/UICC TNM, 7th edition Procedure _x_ Excision with image-guided localization Lymph Node Sampling _x_ [place] lymph nodes Specimen Laterality _x_ Right Tumor Size: Size of Largest Invasive Carcinoma _x_ Greatest dimension of largest focus of invasion over 1 mm: 0.9 cm (9 mm) Tumor Focality _x_ Multiple foci of invasive carcinoma Number of foci: 3 Sizes of individual foci: 9 mm, 5 mm, and 1.5 mm Macroscopic and Microscopic Extent of Tumor Skin _x_ No skin present Nipple _x_ Not applicable (excisions less than total mastectomy) Skeletal Muscle _x_ No skeletal muscle present Ductal Carcinoma In Situ (DCIS) No DCIS is present DCIS is present as a major component (>25% of tumor, extensive intraductal component) as a minor component (< 25% of tumor) Histologic Type of Invasive Carcinoma : _x_ Invasive carcinoma with ductal and lobular features ("mixed type carcinoma") Histologic Grade: ([place] Histologic Score) Tubular Differentiation _x_ Score 3 Nuclear Pleomorphism _x_ Score 2 Mitotic Rate _x_ Score 1 Overall Grade _x_ Score cannot be determined (carcinoma with mixed ductal and lobular features) Margins _x_ Margin close to (< 1 mm) invasive carcinoma: Distance from closest margin: 0.7 mm Specify margin: final inferior (part G) _x_ Margin close to (< 1 mm) in situ carcinoma: Distance from closest margin: <0.5 mm Specify margin: final inferior (part G) Lymph-Vascular Invasion _x_ Not definitively identified Lymph Nodes Total number of lymph nodes examined (sentinel and nonsentinel): 4 Number of sentinel lymph nodes examined: 4 Number of lymph nodes with macrometastases ( > 2 mm): 0 Number of lymph nodes with micrometastases (>0.2 mm to 2 mm and/or >200cells):0 Number of lymph nodes with isolated tumor cells (=0.2 mm and =200 cells): 0 Size of largest metastatic deposit (if present): n/a Extranodal Extension _x_ Not applicable Pathologic Staging (pTNM) Primary Tumor (Invasive Carcinoma): mpT1b Regional Lymph Nodes (pN): pN0(sn) Distant Metastasis (pM): not applicable Biomarker Studies Results of ER and LA studies performed on prior biopsy () at [facility] are as follows: ER (clone [id number] mouse monoclonal antibody by [employer]): >90% nuclear staining with strong intensity (Positive). LA (clone16 mouse monoclonal antibody by [employer]): ~70% nuclear staining with moderate to strong intensity (Positive). Results of Her2 (IHC) & Ki-67 studies performed on prior biopsy () at [place], [place] ([id number]) are as follows: Her2 IHC (EP3 from [employer], formerly known as [id number], using Lewis Polymer Refine detection kit): 0 (Negative) Ki67: 15-20% (Intermediate proliferation index) Positive and negative controls (internal if applicable) showed appropriate results. Formalin fixation and cold ischemic times were sent diagnosis within current ASCO/CAP recommendations for ER, LA and Her2 testing. Electronically Signed Lasha Cook M.D. Gross Description A. Received in formalin labeled "right axillary sentinel nodes" are 4 scanlon, irregular lymph nodes ranging from 0.6-0.9 cm in greatest dimension. The specimens are entirely submitted in 4 cassettes as follows: 1-one whole lymph node; 2-4-one whole bisected lymph node each. B. Received in formalin, labeled "right breast wide excision" is a 6.0 x 4.5 x 2.3 cm. scanlon-yellow, irregular, portion of fibroadipose tissue with a needle localization wire present. There is a short suture marking the superior aspect and a long suture marking the lateral aspect, per the surgeon. There is no skin or nipple present. The specimen is inked as follows: Superior blue; inferior green; anterior and lateral red; medial yellow; deep black. The specimen is serially sectioned from anterior to deep. Sectioning reveals a 1.3 x 1.0 x 0.6 cm scanlon, indurated mass at 0.5 cm from the superior margin, 0.7 cm from the inferior margin and 0.8 cm from the lateral margin. The remaining margins appear clear of the mass. Flexible Babysitter sections are submitted in 6 cassettes as follows: 1-2-one full face section of mass each (each section displays superior and inferior margins); 3-lateral margin; 4-medial margin; 5-anterior margin; 6-deep margin. Time to fixation: <1h Total formalin fixation time: ~24h C. Received in formalin labeled "right breast deep margin" is a 2.8 x 2.5 x 0.8 cm irregular portion of fibroadipose tissue with a clip marking the new margin, per the surgeon. The new margin is inked blue and the specimen is serially sectioned. The specimen is entirely and sequentially submitted in 4 cassettes. D. Received in formalin labeled "right breast superior margin" is a 3.2 x 2.7 x 0.7 cm irregular portion of fibroadipose tissue with a clip marking the biopsy cavity side, per the surgeon. The new margin is inked blue and the specimen is serially sectioned. The specimen is entirely and sequentially submitted in 4 cassettes. E. Received in formalin labeled "right breast lateral margin" is a 2.4 x 2.0 x 0.4 cm irregular portion of fibroadipose tissue with a clip marking the new margin, per the surgeon. The new margin is inked blue and the specimen is serially sectioned. The specimen is entirely submitted in 3 cassettes. F. Received in formalin labeled "right breast medial margin" is a 2.6 x 2.5 x 0.5 cm irregular portion of fibroadipose tissue with a clip marking the new margin, per the surgeon. The new margin is inked blue and the specimen is serially sectioned. The specimen is entirely submitted in 3 cassettes. G. Received in formalin labeled "right breast inferior margin" is a 2.8 x 1.8 x 0.5 cm irregular portion of fibroadipose tissue with a clip marking the new margin, per the surgeon. The new margin is inked blue and the specimen is serially sectioned. The specimen is entirely submitted in 3 cassettes. H. Received in formalin labeled "right breast anterior margin" is a 2.0 x 1.6 x 0.5 cm irregular portion of fibroadipose tissue with a clip marking the new margin, per the surgeon. The new margin is inked blue and the specimen is serially sectioned. The specimen is entirely submitted in 2 cassettes. 11/14/2016 saudi11/14/2016
[2016-11-19] MEDS ORDERED: WARFARIN NA 10 MG TABLET (FP) PO ONE (10:25)
--- NOTE | 2016-11-19 10:27 | PN ---
Physical Exam: SUBJECTIVE: Patient seen and examined, reports feeling well, pain well controlled with current medications OBJECTIVE:patient is a 61 y/o female with a past medical history of paroxysmal afib, mitral valve replacement (mechanical, 1997), rheumatic heart disease, hypertension, right shoulder rotar cuff, hyperlipidemia, and invasive ductal lobular carcinoma of the right breast. Patient was admitted from the emergency department for subthereputic inr. pt is s/p Right breast cancer S/P Right breast wide excision sentenel node biopsy for invasive ductal/lobular carcinoma (11/13) Vital Signs Period Temp Pulse Resp BP Sys/Solares Pulse Ox Last 24 Hr 98.3 F-98.7 F 60-65 16-20 109-118/54-62 98-100 GENERAL: The patient is awake, alert, and fully oriented, in no acute distress. HEAD: Normal with no signs of trauma. EYES: PERRL, extraocular movements intact, sclera anicteric, conjunctiva clear. No ptosis. ENT: Ears normal, nares patent, oropharynx clear without exudates, moist mucous membranes. NECK: Trachea midline, full range of motion, supple. LUNGS: Breath sounds equal, clear to auscultation bilaterally, no wheezes, no crackles, no accessory muscle use. HEART: Regular rate and rhythm, S1, S2 without murmur, rub or gallop. ABDOMEN: Soft, nontender, nondistended, normoactive bowel sounds, no guarding, no rebound, no hepatosplenomegaly, no masses. EXTREMITIES: 2+ pulses, warm, well-perfused, no edema. NEUROLOGICAL: Cranial nerves II through XII grossly intact. Normal speech, gait not observed. PSYCH: Normal mood, normal affect. SKIN: Warm, dry, normal turgor, no rashes or lesions noted steri strips noted right axilla no drainage noted, steri strips noted to right areola no drainage noted, no induration, no erythema Laboratory Results - last 24 hr 11/19/16 09:05 INR 2.29 H Active Medications Generic Name Dose Route Start Last Admin Trade Name Freq PRN Reason Stop Dose Admin Acetaminophen 650 mg 11/13/16 13:58 11/17/16 09:39 Tylenol - PO 650 mg Q4H PRN Administration FEVER OR PAIN Amiodarone HCl 200 mg 11/10/16 10:00 11/19/16 09:19 Cordarone - PO 200 mg DAILY SPEEDY Administration Amlodipine Besylate 10 mg 11/10/16 10:00 11/19/16 09:28 Norvasc - PO Not Given DAILY SPEEDY Atenolol 25 mg 11/09/16 22:00 11/19/16 09:26 Tenormin - PO 25 mg BID SPEEDY Administration Diltiazem HCl 240 mg 11/10/16 10:00 11/19/16 09:20 Cardizem Cd - PO 240 mg DAILY SPEEDY Administration Heparin Sodium/Dextrose 500 mls @ 16 mls/hr 11/13/16 23:21 11/18/16 01:37 Heparin Infusion - IVPB 20 mls/hr TITR SPEEDY Administration Protocol 800 UNITS/HR Labetalol HCl 300 mg 11/09/16 22:00 11/17/16 21:33 Normodyne - PO 300 mg HS SPEEDY Administration Metformin HCl 500 mg 11/09/16 16:30 11/19/16 07:13 Glucophage - PO 500 mg BIDI SPEEDY Administration Ondansetron HCl 4 mg 11/13/16 13:58 Zofran Injection IVPB Q6H PRN NAUSEA Oxycodone HCl 5 mg 11/16/16 23:10 11/19/16 09:19 Roxicodone - PO 5 mg Q4H PRN Administration PAIN Quinapril HCl 40 mg 11/12/16 10:00 11/19/16 09:28 Accupril - PO Not Given DAILY SPEEDY Rosuvastatin Calcium 20 mg 11/10/16 10:00 11/19/16 09:19 Crestor - PO 20 mg DAILY SPEEDY Administration Solifenacin 10 mg 11/09/16 22:00 11/18/16 21:45 Vesicare - PO 10 mg HS SPEEDY Administration ASSESSMENT/PLAN: 1) card paroxysmal Afib - continue amiodarone cardizem, and atenolol - cardiology consulted and following, Dr Castano, patient's private choirmaster - subthereputic inr (2.2) countine coumadin 8mg and continue with heparin bridge -->repeat inr in AM hyperlipidemia - continue, crestor hypertension - strict b/p monitoring, b/p on low side, hold norvasc and accupril, continue atenolol 2) endo NIDDM - continue metformin 3) onc invasive ductal lobular carcinoma of the right breast, s/p right breast wide excision, sental node dissection - Dr Sheffield, breast surgeon, consulted and following f/e/n - low sodium diabetic diet - replete lytes prn ppx - zantac - coumadin with heparin bridge - oob - scd dispo: requires inpatient admission Visit type - Emergency Visit Emergency Visit: No - New Patient This patient is new to me today: No - Critical Care Critical Care patient: No - Discharge Referral Referred to [facility] Med P.C.: No
[2016-11-19] MEDS ORDERED: WARFARIN NA 5 MG, WARFARIN NA 3 MG PO ONE (11:00)
[2016-11-19] MEDS ORDERED: WARFARIN NA 3 MG TABLET ONE (11:19)
[2016-11-19] MEDS ORDERED: WARFARIN NA 5 MG TABLET (UD) ONE (11:19)
[2016-11-19] MEDS: SOLIFENACIN SUCCINATE 5 MG TAB (FP) PO SCH (22:51)
[2016-11-19] MEDS: LABETALOL HCL 100 MG TABLET (FP) PO SCH (22:52)
[2016-11-20 06:42] VITALS: TEMP 97.9
[2016-11-20] MEDS: metFORMIN HCL 500 MG TABLET (FP) PO SCH (08:27)
[2016-11-20] MEDS: oxyCODONE HCL 5 MG TABLET PO PRN (08:27)
[2016-11-20 08:33] LABS: ACTIVATED PTT 83.5 SECONDS (24.0-38.9)
[2016-11-20 09:17] VITALS: BP 129/69; PULSE 61
[2016-11-20] MEDS: ROSUVASTATIN CA 20 MG TABLET (FP) PO SCH (09:17)
[2016-11-20] MEDS: amLODIPine BESYLATE 10 MG TABLET (FP) PO SCH (09:18)
[2016-11-20] MEDS: ATENOLOL 25 MG TABLET (FP) PO SCH (09:18)
[2016-11-20] MEDS: AMIODARONE HCL 200 MG TABLET (FP) PO SCH (09:18)
[2016-11-20] MEDS: QUINAPRIL HCL 20 MG TABLET (FP) PO SCH (09:19)
[2016-11-20 10:31] LABS: INR 2.45 (0.82-1.09)
--- NOTE | 2016-11-20 11:22 | DS ---
Physical Exam: SUBJECTIVE: Patient seen and examined, patient reports feeling better, reports pain is well managed with pain medication OBJECTIVE: patient is a 61 y/o female with a past medical history of paroxysmal afib, mitral valve replacement (mechanical, 1997), rheumatic heart disease, hypertension, right shoulder rotar cuff, hyperlipidemia, and invasive ductal lobular carcinoma of the right breast. Patient reports feeling well, her last dose of Coumadin was Tuesday, November 07. Patient presents for pending right breast wide excision, partial mastectomy, possible axillary node dissection. Vital Signs Period Temp Pulse Resp BP Sys/Solares Pulse Ox Last 24 Hr 97.9 F-99.1 F 54-61 18-20 93-129/45-69 97-100 PHYSICAL EXAM GENERAL: The patient is awake, alert, and fully oriented, in no acute distress. HEAD: Normal with no signs of trauma. EYES: PERRL, extraocular movements intact, sclera anicteric, conjunctiva clear. No ptosis. ENT: Ears normal, nares patent, oropharynx clear without exudates, moist mucous membranes. NECK: Trachea midline, full range of motion, supple. LUNGS: Breath sounds equal, clear to auscultation bilaterally, no wheezes, no crackles, no accessory muscle use. HEART: Regular rate and rhythm, S1, S2 without murmur, rub or gallop. ABDOMEN: Soft, nontender, nondistended, normoactive bowel sounds, no guarding, no rebound, no hepatosplenomegaly, no masses. EXTREMITIES: 2+ pulses, warm, well-perfused, no edema. NEUROLOGICAL: Cranial nerves II through XII grossly intact. Normal speech, gait not observed. PSYCH: Normal mood, normal affect. SKIN: Warm, dry, normal turgor, no rashes or lesions noted steri strips noted right axilla no drainage noted, steri strips noted to right areola no drainage noted, no induration, no erythema LABS Laboratory Results - last 24 hr 11/20/16 07:30 INR 2.45 H PTT (Actin FS) 83.5 H D HOSPITAL COURSE: Patient is a 61 y/o female with a past medical history of paroxysmal Afib, amiodarone cardizem,and atenolol was continued throughout admission. cardiology consulted and followed. Dr Castano, patient's private aws developer. Patient was placed on a heparin gtt upon admission for subthereputic inr (2.2). Coumadin was resumed on post op day 0. INR is now therepeutic, pt is resume home dose of coumadin with strict follow up with Dr Castano. Crestor was continued throughout admission. patient has a past medical history of hypertension, norvasc and accupril was held on hospital day 10 and 11 due to hypotension. Patient has a pmh of NIDDM metformin was continued. patient has a pmh of invasive ductal lobular carcinoma of the right breast, s/p right breast wide excision, sental node dissection 11/13/16. Dr Sheffield, breast surgeon, consulted and followed throughout admission. Date of Admission:11/09/16 Date of Discharge: 11/20/16 Minutes to complete discharge: 45 Discharge Summary Reason For Visit: RIGHT BREAST CA Current Active Problems Breast cancer, right breast (Acute) - Home Medications Comprehensive Discharge Medication List: Ambulatory Orders Amiodarone HCl [Cordarone -] 200 mg PO DAILY 07/13/14 Amlodipine Besylate [Norvasc -] 10 mg PO DAILY 07/13/14 Atenolol [Tenormin -] 25 mg PO BID 07/13/14 Diltiazem HCl [Tiazac] 240 mg PO DAILY 07/13/14 Labetalol HCl [Normodyne -] 300 mg PO HS 07/13/14 Metformin HCl [Glucophage -] 500 mg PO BID 07/13/14 Quinapril HCl [Accupril -] 40 mg PO DAILY 07/13/14 Rosuvastatin Calcium [Crestor] 20 mg PO DAILY 07/13/14 Solifenacin Succinate [Vesicare] 10 mg PO HS 07/13/14 Warfarin Sodium [Coumadin] 5 mg PO HS 07/13/14 Oxycodone HCl/Acetaminophen [Percocet 5/325 -] 1 - 2 tab PO Q4H PRN 11/07/16 This patient is new to me today: No Emergency Visit: No Critical Care patient: No - Discharge Referral Referred to [facility] No
== END 2016-11-20 14:30 | disposition home health service (06) | DRG 362 ==
LOC: FM/S 12:07 → EDSTATUS 11-13 11:00 → FM/S 11-16 09:45
PROVIDERS: ADMIT Internal Medicine; ATTEND Nurse Practitioner Family
PROC: 0HTT0ZZ Resection of Right Breast, Open Approach (ICD-10-PCS; principal; 2016-11-13 12:26)
PROC: 07B50ZX Excision of Right Axillary Lymphatic, Open Approach, Diagnostic (ICD-10-PCS; 2016-11-13 12:26)
DX: C50.911 Malignant neoplasm of unspecified site of right female breast (principal); I95.9 Hypotension, unspecified; N95.9 Unspecified menopausal and perimenopausal disorder; Z95.2 Presence of prosthetic heart valve; I48.0 Paroxysmal atrial fibrillation; I10 Essential (primary) hypertension; E78.5 Hyperlipidemia, unspecified; Z87.891 Personal history of nicotine dependence; Z79.84 Long term (current) use of oral hypoglycemic drugs; Z79.01 Long term (current) use of anticoagulants; E11.9 Type 2 diabetes mellitus without complications
CPT/HCPCS: 19281; 36415; 78195-TC; 80048; 80053; 83735; 84100; 85025; 85027; 85610; 85730; 86850; 86900; 86901; 88307-TC; 93005; 94010; 94760; A9541; J1644

== ENCOUNTER 2020-04-11 12:33 | Emergency (ER) | payer OTHER ==
[2020-04-11 13:04] VITALS: BP 165/94; PULSE 87; BMI 25.8
== END 2020-04-11 14:04 | disposition home or self-care (01) ==
LOC: JERFT 12:33
DX: S62.514A Nondisplaced fracture of proximal phalanx of right thumb, initial encounter for closed fracture (principal)
CPT/HCPCS: 99283-25

== ENCOUNTER 2020-05-25 07:57 | Day surgery (SDC) | payer OTHER ==
[2020-05-25] MEDS ORDERED: DENOSUMAB 60 MG/ML DISP.SYRIN SQ ONE (10:00)
[2020-05-25 16:48] VITALS: BP 150/83; PULSE 82; TEMP 98.5
== END 2020-05-25 13:45 | disposition home or self-care (01) ==
LOC: JONCCHEMO 07:57
PROVIDERS: ATTEND Internal Medicine Hematology & Oncology
PROC: 3E013GC Introduction of Other Therapeutic Substance into Subcutaneous Tissue, Percutaneous Approach (ICD-10-PCS; principal; 2020-05-25)
DX: C50.911 Malignant neoplasm of unspecified site of right female breast (principal); M81.0 Age-related osteoporosis without current pathological fracture
CPT/HCPCS: 96372; J0897

== ENCOUNTER 2020-11-23 07:09 | Day surgery (SDC) | payer OTHER ==
[2020-11-23] MEDS ORDERED: DENOSUMAB 60 MG/ML DISP.SYRIN SQ ONE (10:00)
[2020-11-23 13:51] LABS: BASO % 0.7 % (0-2.0); EOS % 1.6 % (0-4.5); HEMATOCRIT 38.9 % (32.4-45.2); HEMOGLOBIN 12.6 GM/dL (10.7-15.3); LYMPH % 22.7 % (8-40); MCH 29.1 pg (25.7-33.7); MCHC 32.4 g/dl (32.0-36.0); MEAN CELL VOLUME 89.6 fl (80-96); MONO % 6.6 % (3.8-10.2); NEUT % 68.4 % (42.8-82.8); PLATELET COUNT 257 10^3/uL (134-434); RBC 4.34 M/mm3 (3.60-5.2)
[2020-11-23 14:13] LABS: ALBUMIN 4.3 g/dl (3.4-5.0); BLOOD UREA NITROGEN 19.9 mg/dL (7-18); CALCIUM 9.9 mg/dL (8.5-10.1)
[2020-11-23 14:16] LABS: CREATININE 1.1 mg/dL (0.55-1.3)
[2020-11-23 14:17] LABS: BILIRUBIN,TOTAL 0.4 mg/dL (0.2-1); TOT PROT 7.3 g/dl (6.4-8.2)
[2020-11-23 17:03] VITALS: BP 145/79; PULSE 76; TEMP 98.8
== END 2020-11-23 15:15 | disposition home or self-care (01) ==
LOC: JONCCHEMO 07:09
PROVIDERS: ATTEND Internal Medicine Hematology & Oncology
PROC: 3E013GC Introduction of Other Therapeutic Substance into Subcutaneous Tissue, Percutaneous Approach (ICD-10-PCS; principal; 2020-11-23)
DX: C50.911 Malignant neoplasm of unspecified site of right female breast (principal); M81.0 Age-related osteoporosis without current pathological fracture
CPT/HCPCS: 36415; 80053; 82306; 85025; 96372; J0897

== ENCOUNTER → 2021-06-28 | Day surgery (SDC) | payer OTHER ==
[~2021-06-28] MED LIST changes: +DENOSUMAB 60 MG/ML DISP.SYRIN SQ ONE; -LIDOCAINE 1%/EPI 1:100000 (20 ML MULTI DOSE VIAL) ONE
[2021-06-28 14:56] LABS: BASO % 0.3 % (0-2.0); EOS % 0.3 % (0-4.5); HEMATOCRIT 35.5 % (32.4-45.2); HEMOGLOBIN 11.7 GM/dL (10.7-15.3); LYMPH % 10.3 % (8-40); MCH 28.6 pg (25.7-33.7); MCHC 33.1 g/dl (32.0-36.0); MEAN CELL VOLUME 86.5 fl (80-96); MONO % 10.6 % (3.8-10.2); NEUT % 78.5 % (42.8-82.8); PLATELET COUNT 250 10^3/uL (134-434); RDW 16.4 % (11.6-15.6); WHITE BLOOD COUNT 8.1 K/mm3 (4.0-10.0)
[2021-06-28 15:16] LABS: BLOOD UREA NITROGEN 17.1 mg/dL (7-18); CALCIUM 10.2 mg/dL (8.5-10.1)
[2021-06-28 15:18] LABS: ALBUMIN 3.8 g/dl (3.4-5.0)
[2021-06-28 15:20] LABS: CREATININE 1.1 mg/dL (0.55-1.3)
[2021-06-28 15:21] LABS: BILIRUBIN,TOTAL 1.1 mg/dL (0.2-1); TOT PROT 6.9 g/dl (6.4-8.2)
== END | disposition home or self-care (01) ==
LOC: JONCNONCHE 06-09 07:17
PROVIDERS: ATTEND Internal Medicine Hematology & Oncology
DX: Z53.8 Procedure and treatment not carried out for other reasons (principal)
CPT/HCPCS: 36415; 80053; 82306; 85025

== ENCOUNTER 2021-10-25 12:27 | Inpatient (IN) | payer BC, OTHER ==
[2021-10-25] MEDS ORDERED: FUROSEMIDE 40 MG/4 ML INJECTABLE VIAL IVPUSH ONE (13:57)
[2021-10-25] MEDS ORDERED: FUROSEMIDE 40 MG/4 ML INJECTABLE VIAL ONE (14:01)
[2021-10-25 14:52] LABS: EOS % 2.3 % (0-4.5); HEMOGLOBIN 11.2 GM/dL (10.7-15.3); LYMPH % 24.5 % (8-40); MCH 29.2 pg (25.7-33.7); MEAN CELL VOLUME 85.9 fl (80-96); MEAN PLT VOLUME 7.8 fl (7.5-11.1); NEUT % 60.2 % (42.8-82.8); PLATELET COUNT 270 10^3/uL (134-434); RBC 3.84 M/mm3 (3.60-5.2); WHITE BLOOD COUNT 4.2 K/mm3 (4.0-10.0)
[2021-10-25 15:24] LABS: CALCIUM 9.3 mg/dL (8.5-10.1)
[2021-10-25 15:25] LABS: ALBUMIN 3.8 g/dl (3.4-5.0); BLOOD UREA NITROGEN 36.2 mg/dL (7-18)
[2021-10-25 15:28] LABS: CREATININE 1.7 mg/dL (0.55-1.3)
[2021-10-25 15:30] LABS: BILIRUBIN,TOTAL 0.5 mg/dL (0.2-1); TOT PROT 6.8 g/dl (6.4-8.2)
[2021-10-25 15:33] LABS: N-TERMINAL BNP 388.1 pg/ml (5-125)
[2021-10-25 17:05] LABS: EPI CELLS 15 /uL (0-25.1); HYALINE CASTS 0 /uL (0-3.1); PH,URINE 6.5 (5.0-8.0); URINE APPEARANCE CLEAR; URINE BACTERIA 20 /uL (0-1359); URINE BILIRUBIN NEGATIVE (NEGATIVE); URINE COLOR YELLOW; URINE GLUCOSE (UA) NEGATIVE (NEGATIVE); URINE KETONE NEGATIVE (NEGATIVE); URINE LEUK ESTERASE TRACE (NEGATIVE); URINE NITRITE NEGATIVE (NEGATIVE); URINE PROTEIN NEGATIVE (NEGATIVE); URINE RBC 19 /uL (0-23.9); URINE UROBILINOGEN 0.2 mg/dL (0.2-1.0); URINE WBC 6 /uL (0-25.8)
[2021-10-26] MEDS ORDERED: metFORMIN HCL 500 MG TABLET (FP) ONE (08:17)
[2021-10-26] MEDS: metFORMIN HCL 500 MG TABLET (FP) PO SCH ×2 (08:28→17:31)
[2021-10-26] MEDS: INSULIN SLIDING SCALE (NOVOLOG) 1 VIAL SQ SCH ×4 (08:51→22:13)
[2021-10-26] MEDS ORDERED: AMIODARONE HCL 200 MG TABLET ONE (08:57)
[2021-10-26] MEDS ORDERED: ATENOLOL 25 MG TABLET (FP) ONE ×2 (08:58→21:56)
[2021-10-26] MEDS ORDERED: FUROSEMIDE 40 MG/4 ML INJECTABLE VIAL ONE (08:58)
[2021-10-26 09:22] LABS: BASO % 0.7 % (0-2.0); EOS % 2.4 % (0-4.5); HEMATOCRIT 36.4 % (32.4-45.2); HEMOGLOBIN 12.2 GM/dL (10.7-15.3); LYMPH % 24.3 % (8-40); MCH 28.6 pg (25.7-33.7); MCHC 33.5 g/dl (32.0-36.0); MEAN CELL VOLUME 85.5 fl (80-96); MEAN PLT VOLUME 7.9 fl (7.5-11.1); MONO % 9.3 % (3.8-10.2); NEUT % 63.3 % (42.8-82.8); PLATELET COUNT 303 10^3/uL (134-434); RBC 4.25 M/mm3 (3.60-5.2); RDW 16.4 % (11.6-15.6); WHITE BLOOD COUNT 5.4 K/mm3 (4.0-10.0)
[2021-10-26] MEDS: ANASTROZOLE 1 MG TABLET PO SCH (09:45)
[2021-10-26] MEDS: ATENOLOL 25 MG TABLET (FP) PO SCH ×2 (09:45→22:13)
[2021-10-26] MEDS: AMIODARONE HCL 200 MG TABLET PO SCH (09:45)
[2021-10-26] MEDS: QUINAPRIL HCL 40 MG TABLET PO SCH (09:45)
[2021-10-26] MEDS: FUROSEMIDE 40 MG/4 ML INJECTABLE VIAL IVPUSH SCH (09:45)
[2021-10-26 09:58] LABS: ALBUMIN 4.1 g/dl (3.4-5.0); BLOOD UREA NITROGEN 38.8 mg/dL (7-18); CALCIUM 9.8 mg/dL (8.5-10.1)
[2021-10-26 10:02] LABS: CREATININE 1.5 mg/dL (0.55-1.3)
[2021-10-26 10:03] LABS: TOT PROT 7.5 g/dl (6.4-8.2)
[2021-10-26 10:04] LABS: BILIRUBIN,TOTAL 0.8 mg/dL (0.2-1)
[2021-10-26 17:20] LABS: INR 1.73 (0.83-1.09)
[2021-10-26] MEDS ORDERED: WARFARIN NA 5 MG TABLET ONE (18:57)
[2021-10-26] MEDS: WARFARIN NA 5 MG TABLET PO SCH (18:59)
[2021-10-26] MEDS ORDERED: ROSUVASTATIN CA 20 MG TABLET ONE (21:56)
[2021-10-26] MEDS: ROSUVASTATIN CA 20 MG TABLET PO SCH (22:13)
[2021-10-27] MEDS ORDERED: metFORMIN HCL 500 MG TABLET (FP) ONE (06:50)
[2021-10-27] MEDS: metFORMIN HCL 500 MG TABLET (FP) PO SCH ×2 (06:54→17:33)
[2021-10-27] MEDS: INSULIN SLIDING SCALE (NOVOLOG) 1 VIAL SQ SCH ×4 (07:22→22:25)
[2021-10-27 07:57] LABS: INR 1.5 (0.83-1.09); PROTHROMBIN TIME (PATIENT) 17.3 SEC (9.7-13.0)
[2021-10-27 08:33] LABS: ALBUMIN 3.6 g/dl (3.4-5.0); BILIRUBIN,TOTAL 0.5 mg/dL (0.2-1); BLOOD UREA NITROGEN 43.4 mg/dL (7-18); CALCIUM 9.6 mg/dL (8.5-10.1); CREATININE 1.6 mg/dL (0.55-1.3); TOT PROT 6.3 g/dl (6.4-8.2)
[2021-10-27] MEDS ORDERED: ATENOLOL 25 MG TABLET (FP) ONE (10:01)
[2021-10-27] MEDS ORDERED: FUROSEMIDE 40 MG/4 ML INJECTABLE VIAL ONE (10:01)
[2021-10-27] MEDS ORDERED: AMIODARONE HCL 200 MG TABLET ONE (10:01)
[2021-10-27] MEDS: AMIODARONE HCL 200 MG TABLET PO SCH (10:24)
[2021-10-27] MEDS: ATENOLOL 25 MG TABLET (FP) PO SCH ×2 (10:24→22:17)
[2021-10-27] MEDS: ANASTROZOLE 1 MG TABLET PO SCH (10:24)
[2021-10-27] MEDS: FUROSEMIDE 40 MG/4 ML INJECTABLE VIAL IVPUSH SCH (10:24)
[2021-10-27] MEDS: QUINAPRIL HCL 40 MG TABLET PO SCH (10:24)
[2021-10-27] MEDS ORDERED: REMDESIVIR 200 MG in SODIUM CHLORIDE 250 ML IVPB ONE (18:00)
[2021-10-27] MEDS: WARFARIN NA 5 MG TABLET PO SCH (18:49)
[2021-10-27] MEDS ORDERED: ACETAMINOPHEN 325 MG TABLET (FP) PO ONE (22:15)
[2021-10-27] MEDS: ROSUVASTATIN CA 20 MG TABLET PO SCH (22:17)
[2021-10-28] MEDS: metFORMIN HCL 500 MG TABLET (FP) PO SCH ×2 (06:10→16:42)
[2021-10-28] MEDS: INSULIN SLIDING SCALE (NOVOLOG) 1 VIAL SQ SCH ×4 (06:10→23:01)
[2021-10-28 08:12] LABS: BASO % 0.7 % (0-2.0); EOS % 2.3 % (0-4.5); HEMATOCRIT 35.2 % (32.4-45.2); HEMOGLOBIN 11.9 GM/dL (10.7-15.3); LYMPH % 24.9 % (8-40); MCH 29.3 pg (25.7-33.7); MCHC 33.8 g/dl (32.0-36.0); MEAN CELL VOLUME 86.6 fl (80-96); MEAN PLT VOLUME 8.1 fl (7.5-11.1); MONO % 14.7 % (3.8-10.2); NEUT % 57.4 % (42.8-82.8); PLATELET COUNT 244 10^3/uL (134-434); RBC 4.06 M/mm3 (3.60-5.2); RDW 16.4 % (11.6-15.6)
[2021-10-28 08:18] LABS: INR 1.45 (0.83-1.09); INR 1.47 (0.83-1.09); PROTHROMBIN TIME (PATIENT) 16.7 SEC (9.7-13.0)
[2021-10-28 08:40] LABS: CALCIUM 9.5 mg/dL (8.5-10.1)
[2021-10-28 08:41] LABS: ALBUMIN 3.7 g/dl (3.4-5.0)
[2021-10-28 08:43] LABS: CREATININE 1.3 mg/dL (0.55-1.3)
[2021-10-28 08:45] LABS: BILIRUBIN,TOTAL 0.6 mg/dL (0.2-1); TOT PROT 6.6 g/dl (6.4-8.2)
[2021-10-28] MEDS: AMIODARONE HCL 200 MG TABLET PO SCH (09:05)
[2021-10-28] MEDS: ATENOLOL 25 MG TABLET (FP) PO SCH (09:05)
[2021-10-28] MEDS: FUROSEMIDE 40 MG/4 ML INJECTABLE VIAL IVPUSH SCH (09:06)
[2021-10-28] MEDS: ANASTROZOLE 1 MG TABLET PO SCH (09:06)
[2021-10-28] MEDS: REMDESIVIR 100 MG in SODIUM CHLORIDE 250 ML IVPB SCH (09:11)
[2021-10-28] MEDS: QUINAPRIL HCL 40 MG TABLET PO SCH (09:22)
[2021-10-28] MEDS ORDERED: POTASSIUM CHLORIDE TABS 20 MEQ TABLET.ER (FP) PO ONE (10:13)
[2021-10-28] MEDS ORDERED: QUINAPRIL HCL 40 MG TABLET PO SCH (10:16)
[2021-10-28] MEDS ORDERED: HEPARIN NA (PORCINE) 5,000 UNITS/ML 1ML VIAL IVPUSH PRN (14:18)
[2021-10-28] MEDS ORDERED: WARFARIN NA 5 MG TABLET PO SCH (14:19)
[2021-10-28] MEDS: HEPARIN - 25,000 UNIT in SODIUM CHLORIDE 495 ML IV SCH (15:18)
[2021-10-28] MEDS: HEPARIN NA (PORCINE) 5,000 UNITS/ML 1ML VIAL IVPUSH PRN (15:19)
[2021-10-28] MEDS: metoPROLOL SUCCINATE 25 MG TAB.SR.24H (FP) PO SCH (22:46)
[2021-10-28] MEDS: ROSUVASTATIN CA 20 MG TABLET PO SCH (23:01)
[2021-10-29] MEDS: INSULIN SLIDING SCALE (NOVOLOG) 1 VIAL SQ SCH ×4 (06:50→21:36)
[2021-10-29] MEDS: metFORMIN HCL 500 MG TABLET (FP) PO SCH ×2 (06:50→17:40)
[2021-10-29 08:07] LABS: HEMOGLOBIN 11.7 GM/dL (10.7-15.3); MCHC 33.4 g/dl (32.0-36.0); MEAN CELL VOLUME 86.7 fl (80-96); MEAN PLT VOLUME 8.3 fl (7.5-11.1); PLATELET COUNT 258 10^3/uL (134-434); RBC 4.04 M/mm3 (3.60-5.2); RDW 16.4 % (11.6-15.6); WHITE BLOOD COUNT 6.3 K/mm3 (4.0-10.0)
[2021-10-29 08:16] LABS: INR 1.85 (0.83-1.09); PROTHROMBIN TIME (PATIENT) 21.4 SEC (9.7-13.0)
[2021-10-29 08:17] LABS: INR 2.02 (0.83-1.09); PROTHROMBIN TIME (PATIENT) 23.4 SEC (9.7-13.0)
[2021-10-29 08:27] LABS: ALBUMIN 3.5 g/dl (3.4-5.0); BLOOD UREA NITROGEN 34.4 mg/dL (7-18); CALCIUM 9.3 mg/dL (8.5-10.1); MAGNESIUM 1.8 mg/dL (1.8-2.4)
[2021-10-29 08:30] LABS: CREATININE 1.2 mg/dL (0.55-1.3)
[2021-10-29 08:32] LABS: BILIRUBIN,TOTAL 0.8 mg/dL (0.2-1); TOT PROT 6.8 g/dl (6.4-8.2)
[2021-10-29 08:48] LABS: ACTIVATED PTT 130.4 SECONDS (25.2-36.5)
[2021-10-29] MEDS: metoPROLOL SUCCINATE 25 MG TAB.SR.24H (FP) PO SCH ×3 (10:36→21:36)
[2021-10-29] MEDS: AMIODARONE HCL 200 MG TABLET PO SCH (10:36)
[2021-10-29] MEDS: FUROSEMIDE 40 MG/4 ML INJECTABLE VIAL IVPUSH SCH ×2 (10:36→12:55)
[2021-10-29] MEDS: ANASTROZOLE 1 MG TABLET PO SCH (10:36)
[2021-10-29] MEDS: REMDESIVIR 100 MG in SODIUM CHLORIDE 250 ML IVPB SCH (11:19)
[2021-10-29] MEDS ORDERED: METOPROLOL TARTRATE 5 MG/5 ML VIAL IVPUSH ONE (13:15)
[2021-10-29] MEDS: HEPARIN - 25,000 UNIT in SODIUM CHLORIDE 495 ML IV SCH (17:12)
[2021-10-29] MEDS: WARFARIN NA 7.5 MG TABLET PO SCH (17:51)
[2021-10-29] MEDS: ROSUVASTATIN CA 20 MG TABLET PO SCH (21:36)
[2021-10-29] MEDS: HEPARIN NA (PORCINE) 5,000 UNITS/ML 1ML VIAL IVPUSH PRN (23:37)
[2021-10-30] MEDS: INSULIN SLIDING SCALE (NOVOLOG) 1 VIAL SQ SCH ×4 (06:31→21:03)
[2021-10-30] MEDS: metFORMIN HCL 500 MG TABLET (FP) PO SCH ×2 (06:31→16:32)
[2021-10-30 08:45] LABS: HEMATOCRIT 33.6 % (32.4-45.2); HEMOGLOBIN 11.5 GM/dL (10.7-15.3); MCH 29.3 pg (25.7-33.7); MCHC 34.2 g/dl (32.0-36.0); MEAN CELL VOLUME 85.8 fl (80-96); MEAN PLT VOLUME 8.4 fl (7.5-11.1); PLATELET COUNT 245 10^3/uL (134-434); RBC 3.91 M/mm3 (3.60-5.2); RDW 16.6 % (11.6-15.6); WHITE BLOOD COUNT 6.4 K/mm3 (4.0-10.0)
[2021-10-30 08:51] LABS: INR 2.36 (0.83-1.09); PROTHROMBIN TIME (PATIENT) 27.4 SEC (9.7-13.0)
[2021-10-30] MEDS: ANASTROZOLE 1 MG TABLET PO SCH (09:37)
[2021-10-30] MEDS: metoPROLOL SUCCINATE 25 MG TAB.SR.24H (FP) PO SCH ×2 (09:37→21:03)
[2021-10-30] MEDS: AMIODARONE HCL 200 MG TABLET PO SCH (09:37)
[2021-10-30] MEDS: REMDESIVIR 100 MG in SODIUM CHLORIDE 250 ML IVPB SCH (09:43)
[2021-10-30] MEDS: FUROSEMIDE 20 MG TABLET (FP) PO SCH (11:17)
[2021-10-30] MEDS: SACUBITRIL/VALSARTAN 24 MG-26 MG TABLET PO SCH ×2 (11:17→21:03)
[2021-10-30] MEDS: HEPARIN - 25,000 UNIT in SODIUM CHLORIDE 495 ML IV SCH ×3 (15:38→23:20)
[2021-10-30] MEDS: WARFARIN NA 7.5 MG TABLET PO SCH (18:03)
[2021-10-30] MEDS: ACETAMINOPHEN 325 MG TABLET (FP) PO PRN (20:57)
[2021-10-30] MEDS: CYCLOBENZAPRINE HCL 10 MG TABLET (FP) PO PRN (20:57)
[2021-10-30] MEDS: ROSUVASTATIN CA 20 MG TABLET PO SCH (21:03)
[2021-10-31] MEDS: metFORMIN HCL 500 MG TABLET (FP) PO SCH ×2 (06:29→17:01)
[2021-10-31] MEDS: INSULIN SLIDING SCALE (NOVOLOG) 1 VIAL SQ SCH ×4 (06:34→21:21)
[2021-10-31] MEDS: ACETAMINOPHEN 325 MG TABLET (FP) PO PRN ×2 (06:36→21:20)
[2021-10-31 08:35] LABS: HEMATOCRIT 35.2 % (32.4-45.2); MCH 29.2 pg (25.7-33.7); MCHC 34.2 g/dl (32.0-36.0); MEAN CELL VOLUME 85.5 fl (80-96); MEAN PLT VOLUME 8.2 fl (7.5-11.1); PLATELET COUNT 236 10^3/uL (134-434); RBC 4.11 M/mm3 (3.60-5.2); RDW 16.4 % (11.6-15.6); WHITE BLOOD COUNT 8.6 K/mm3 (4.0-10.0)
[2021-10-31 08:43] LABS: PROTHROMBIN TIME (PATIENT) 46.9 SEC (9.7-13.0)
[2021-10-31 08:58] LABS: CALCIUM 8.9 mg/dL (8.5-10.1)
[2021-10-31 08:59] LABS: ALBUMIN 3.3 g/dl (3.4-5.0); INR 4.02 (0.83-1.09)
[2021-10-31 09:02] LABS: CREATININE 0.9 mg/dL (0.55-1.3)
[2021-10-31 09:03] LABS: BILIRUBIN,TOTAL 0.9 mg/dL (0.2-1); TOT PROT 6.3 g/dl (6.4-8.2)
[2021-10-31] MEDS: metoPROLOL SUCCINATE 25 MG TAB.SR.24H (FP) PO SCH ×2 (09:06→21:21)
[2021-10-31] MEDS: SACUBITRIL/VALSARTAN 24 MG-26 MG TABLET PO SCH ×2 (09:06→21:21)
[2021-10-31] MEDS: FUROSEMIDE 20 MG TABLET (FP) PO SCH (09:07)
[2021-10-31] MEDS: AMIODARONE HCL 200 MG TABLET PO SCH (09:07)
[2021-10-31] MEDS: ANASTROZOLE 1 MG TABLET PO SCH (09:07)
[2021-10-31 09:30] LABS: ANISOCYTOSIS 0; HELMET CELLS 0; HOWELL-JOLLY BODIES 0; MACROCYTOSIS 0; OVALOCYTE 0; ROULEAU 0; SICKELED CELLS 0; TARGET CELLS 0; TEAR DROP CELLS 0; TOXIC GRANULATION 0
[2021-10-31] MEDS ORDERED: DEXTROSE 5%-0.45% SALINE 1,000 ML IV SCH (11:15)
[2021-10-31] MEDS ORDERED: POTASSIUM CHLORIDE TABS 20 MEQ TABLET.ER (FP) PO ONE (13:30)
[2021-10-31] MEDS ORDERED: SODIUM CHLORIDE 500 ML IV STA (14:00)
[2021-10-31] MEDS: levoFLOXacin 750 MG TABLET PO SCH (15:28)
[2021-10-31] MEDS: ROSUVASTATIN CA 20 MG TABLET PO SCH (21:21)
[2021-11-01] MEDS: ACETAMINOPHEN 325 MG TABLET (FP) PO PRN ×3 (02:21→21:43)
[2021-11-01] MEDS: metFORMIN HCL 500 MG TABLET (FP) PO SCH ×2 (06:16→15:44)
[2021-11-01] MEDS: INSULIN SLIDING SCALE (NOVOLOG) 1 VIAL SQ SCH ×4 (06:16→21:55)
[2021-11-01] MEDS: levoFLOXacin 750 MG TABLET PO SCH (06:38)
[2021-11-01 07:43] LABS: PROTHROMBIN TIME (PATIENT) 68.5 SEC (9.7-13.0)
[2021-11-01 07:47] LABS: BASO % 0.4 % (0-2.0); EOS % 0.5 % (0-4.5); HEMATOCRIT 35.4 % (32.4-45.2); LYMPH % 13.3 % (8-40); MCHC 33.9 g/dl (32.0-36.0); MEAN CELL VOLUME 85.7 fl (80-96); MEAN PLT VOLUME 8.6 fl (7.5-11.1); MONO % 14.4 % (3.8-10.2); NEUT % 71.4 % (42.8-82.8); PLATELET COUNT 249 10^3/uL (134-434); RBC 4.13 M/mm3 (3.60-5.2); RDW 16.1 % (11.6-15.6); WHITE BLOOD COUNT 8.1 K/mm3 (4.0-10.0)
[2021-11-01 07:59] LABS: ALBUMIN 3.1 g/dl (3.4-5.0); BLOOD UREA NITROGEN 19.2 mg/dL (7-18); CALCIUM 9.1 mg/dL (8.5-10.1)
[2021-11-01 08:04] LABS: BILIRUBIN,TOTAL 0.7 mg/dL (0.2-1); TOT PROT 6.1 g/dl (6.4-8.2)
[2021-11-01 08:42] LABS: INR 5.85 (0.83-1.09)
[2021-11-01] MEDS ORDERED: SODIUM CHLORIDE 500 ML IV STA (08:46)
[2021-11-01] MEDS: SACUBITRIL/VALSARTAN 24 MG-26 MG TABLET PO SCH ×2 (09:56→21:43)
[2021-11-01] MEDS: ANASTROZOLE 1 MG TABLET PO SCH (09:59)
[2021-11-01] MEDS: metoPROLOL SUCCINATE 25 MG TAB.SR.24H (FP) PO SCH (09:59)
[2021-11-01] MEDS: AMIODARONE HCL 200 MG TABLET PO SCH ×2 (09:59→11:20)
[2021-11-01] MEDS ORDERED: metoPROLOL SUCCINATE 25 MG TAB.SR.24H (FP) PO ONE (12:00)
[2021-11-01] MEDS ORDERED: DEXTROSE 5%-WATER - 50 ML IVPB ONE (15:01)
[2021-11-01] MEDS ORDERED: AZTREONAM 1 GM VIAL (RESTRICTED TO ID) ONE (15:01)
[2021-11-01] MEDS: AZTREONAM 1 GM in DEXTROSE 5%-WATER - 50 ML IVPB SCH ×2 (15:22→17:07)
[2021-11-01] MEDS: ROSUVASTATIN CA 20 MG TABLET PO SCH (21:35)
[2021-11-01] MEDS: CYCLOBENZAPRINE HCL 10 MG TABLET (FP) PO PRN (21:43)
[2021-11-02] MEDS ORDERED: DEXTROSE 5%-WATER - 50 ML IVPB ONE ×3 (01:00→17:38)
[2021-11-02] MEDS ORDERED: AZTREONAM 1 GM VIAL (RESTRICTED TO ID) ONE ×3 (01:00→17:37)
[2021-11-02] MEDS: AZTREONAM 1 GM in DEXTROSE 5%-WATER - 50 ML IVPB SCH ×3 (01:07→17:50)
[2021-11-02] MEDS: INSULIN SLIDING SCALE (NOVOLOG) 1 VIAL SQ SCH ×4 (06:30→22:30)
[2021-11-02] MEDS: metFORMIN HCL 500 MG TABLET (FP) PO SCH ×2 (06:30→17:52)
[2021-11-02 07:40] LABS: HEMATOCRIT 34.5 % (32.4-45.2); HEMOGLOBIN 11.7 GM/dL (10.7-15.3); MCHC 33.8 g/dl (32.0-36.0); MEAN CELL VOLUME 85.8 fl (80-96); MEAN PLT VOLUME 8.5 fl (7.5-11.1); PLATELET COUNT 262 10^3/uL (134-434); RBC 4.03 M/mm3 (3.60-5.2); RDW 16.5 % (11.6-15.6); WHITE BLOOD COUNT 6.6 K/mm3 (4.0-10.0)
[2021-11-02 07:58] LABS: PROTHROMBIN TIME (PATIENT) 68.2 SEC (9.7-13.0)
[2021-11-02 08:47] LABS: INR 5.83 (0.83-1.09)
[2021-11-02 08:59] LABS: CALCIUM 9.2 mg/dL (8.5-10.1)
[2021-11-02 09:01] LABS: BLOOD UREA NITROGEN 20.4 mg/dL (7-18)
[2021-11-02 09:04] LABS: BILIRUBIN,TOTAL 0.5 mg/dL (0.2-1); TOT PROT 6.1 g/dl (6.4-8.2)
[2021-11-02] MEDS: SACUBITRIL/VALSARTAN 24 MG-26 MG TABLET PO SCH ×2 (10:45→22:32)
[2021-11-02] MEDS: AMIODARONE HCL 200 MG TABLET PO SCH (10:45)
[2021-11-02] MEDS: ANASTROZOLE 1 MG TABLET PO SCH (10:48)
[2021-11-02] MEDS: CYCLOBENZAPRINE HCL 10 MG TABLET (FP) PO PRN (22:30)
[2021-11-02] MEDS: ROSUVASTATIN CA 20 MG TABLET PO SCH (22:30)
[2021-11-02] MEDS: ACETAMINOPHEN 325 MG TABLET (FP) PO PRN (22:30)
[2021-11-03] MEDS ORDERED: AZTREONAM 1 GM VIAL (RESTRICTED TO ID) ONE ×3 (00:41→19:15)
[2021-11-03] MEDS ORDERED: DEXTROSE 5%-WATER - 50 ML IVPB ONE ×3 (00:41→19:15)
[2021-11-03] MEDS: AZTREONAM 1 GM in DEXTROSE 5%-WATER - 50 ML IVPB SCH ×3 (02:08→19:34)
[2021-11-03] MEDS: INSULIN SLIDING SCALE (NOVOLOG) 1 VIAL SQ SCH ×4 (06:08→21:33)
[2021-11-03] MEDS: metFORMIN HCL 500 MG TABLET (FP) PO SCH ×2 (06:08→17:36)
[2021-11-03 06:36] LABS: HEMATOCRIT 33.2 % (32.4-45.2); HEMOGLOBIN 11.3 GM/dL (10.7-15.3); MCH 29.1 pg (25.7-33.7); MCHC 34.1 g/dl (32.0-36.0); MEAN CELL VOLUME 85.2 fl (80-96); MEAN PLT VOLUME 8.5 fl (7.5-11.1); PLATELET COUNT 272 10^3/uL (134-434); RBC 3.89 M/mm3 (3.60-5.2); RDW 16.2 % (11.6-15.6); WHITE BLOOD COUNT 6.1 K/mm3 (4.0-10.0)
[2021-11-03 06:39] LABS: PROTHROMBIN TIME (PATIENT) 60.9 SEC (9.7-13.0)
[2021-11-03 08:23] LABS: INR 5.21 (0.83-1.09)
[2021-11-03] MEDS: AMIODARONE HCL 200 MG TABLET PO SCH (10:38)
[2021-11-03] MEDS: SACUBITRIL/VALSARTAN 24 MG-26 MG TABLET PO SCH ×2 (10:38→21:32)
[2021-11-03] MEDS: ANASTROZOLE 1 MG TABLET PO SCH (10:39)
[2021-11-03] MEDS ORDERED: SENNOSIDES 8.6MG TABLET (FP) PO ONE (20:45)
[2021-11-03] MEDS ORDERED: traMADol HCL 50 MG TABLET PO ONE (20:45)
[2021-11-03] MEDS ORDERED: DOCUSATE SODIUM 100 MG CAPSULE (FP) PO ONE (20:45)
[2021-11-03] MEDS: CYCLOBENZAPRINE HCL 10 MG TABLET (FP) PO PRN (21:32)
[2021-11-03] MEDS: DOCUSATE SODIUM 100 MG CAPSULE (FP) PO SCH (21:32)
[2021-11-03] MEDS: ROSUVASTATIN CA 20 MG TABLET PO SCH (21:32)
[2021-11-04] MEDS ORDERED: AZTREONAM 1 GM VIAL (RESTRICTED TO ID) ONE ×3 (01:17→18:00)
[2021-11-04] MEDS ORDERED: DEXTROSE 5%-WATER - 50 ML IVPB ONE ×3 (01:17→18:00)
[2021-11-04] MEDS: AZTREONAM 1 GM in DEXTROSE 5%-WATER - 50 ML IVPB SCH ×3 (02:27→17:17)
[2021-11-04] MEDS: ACETAMINOPHEN 325 MG TABLET (FP) PO PRN (06:03)
[2021-11-04] MEDS: INSULIN SLIDING SCALE (NOVOLOG) 1 VIAL SQ SCH ×4 (06:10→21:04)
[2021-11-04] MEDS: metFORMIN HCL 500 MG TABLET (FP) PO SCH ×2 (06:10→17:16)
[2021-11-04 08:26] LABS: BASO % 0.4 % (0-2.0); EOS % 1.5 % (0-4.5); HEMOGLOBIN 11.5 GM/dL (10.7-15.3); LYMPH % 20.7 % (8-40); MCH 28.8 pg (25.7-33.7); MCHC 33.8 g/dl (32.0-36.0); MEAN CELL VOLUME 85.4 fl (80-96); NEUT % 64.4 % (42.8-82.8); PLATELET COUNT 301 10^3/uL (134-434); RBC 3.98 M/mm3 (3.60-5.2); RDW 16.2 % (11.6-15.6); WHITE BLOOD COUNT 5.6 K/mm3 (4.0-10.0)
[2021-11-04 08:32] LABS: ALBUMIN 2.8 g/dl (3.4-5.0); BLOOD UREA NITROGEN 20.4 mg/dL (7-18)
[2021-11-04 08:33] LABS: PROTHROMBIN TIME (PATIENT) 51.2 SEC (9.7-13.0)
[2021-11-04 08:35] LABS: CREATININE 0.9 mg/dL (0.55-1.3)
[2021-11-04 08:37] LABS: BILIRUBIN,TOTAL 0.5 mg/dL (0.2-1); TOT PROT 5.9 g/dl (6.4-8.2)
[2021-11-04 08:42] LABS: INR 4.39 (0.83-1.09)
[2021-11-04] MEDS: ANASTROZOLE 1 MG TABLET PO SCH (10:23)
[2021-11-04] MEDS: AMIODARONE HCL 200 MG TABLET PO SCH (10:23)
[2021-11-04] MEDS: SACUBITRIL/VALSARTAN 24 MG-26 MG TABLET PO SCH ×2 (10:24→21:04)
[2021-11-04] MEDS: POLYETHYLENE GLYCOL (HEALTHYLAX) 3350 17 GM PACKET PO SCH (10:24)
[2021-11-04] MEDS ORDERED: traMADol HCL 50 MG TABLET PO ONE (20:10)
[2021-11-04] MEDS: LIDOCAINE 5% TOPICAL PATCH TP SCH (21:03)
[2021-11-04] MEDS: METHYL SALICYLATE/MENTHOL OINT 30 GM TUBE TP PRN (21:04)
[2021-11-04] MEDS: ROSUVASTATIN CA 20 MG TABLET PO SCH (21:04)
[2021-11-04] MEDS: LIDOCAINE PATCH REMOVAL MC SCH (21:04)
[2021-11-04] MEDS: DOCUSATE SODIUM 100 MG CAPSULE (FP) PO SCH (21:04)
[2021-11-04] MEDS: CYCLOBENZAPRINE HCL 10 MG TABLET (FP) PO PRN (21:05)
[2021-11-05] MEDS ORDERED: AZTREONAM 1 GM VIAL (RESTRICTED TO ID) ONE ×3 (01:02→18:46)
[2021-11-05] MEDS ORDERED: DEXTROSE 5%-WATER - 50 ML IVPB ONE ×3 (01:03→18:46)
[2021-11-05] MEDS: AZTREONAM 1 GM in DEXTROSE 5%-WATER - 50 ML IVPB SCH ×3 (01:16→18:24)
[2021-11-05] MEDS: BENZOCAINE/MENTH/CETYLPYRD CL 1 EACH LOZENGE MM PRN (01:17)
[2021-11-05] MEDS: metFORMIN HCL 500 MG TABLET (FP) PO SCH ×2 (06:19→15:33)
[2021-11-05] MEDS: INSULIN SLIDING SCALE (NOVOLOG) 1 VIAL SQ SCH ×4 (06:20→21:13)
[2021-11-05 09:10] LABS: INR 3.85 (0.83-1.09); PROTHROMBIN TIME (PATIENT) 44.9 SEC (9.7-13.0)
[2021-11-05] MEDS: AMIODARONE HCL 200 MG TABLET PO SCH (10:38)
[2021-11-05] MEDS: SACUBITRIL/VALSARTAN 24 MG-26 MG TABLET PO SCH ×2 (10:38→21:12)
[2021-11-05] MEDS: LIDOCAINE 5% TOPICAL PATCH TP SCH (10:38)
[2021-11-05] MEDS: POLYETHYLENE GLYCOL (HEALTHYLAX) 3350 17 GM PACKET PO SCH (10:38)
[2021-11-05] MEDS: ANASTROZOLE 1 MG TABLET PO SCH (10:38)
[2021-11-05] MEDS: ROSUVASTATIN CA 20 MG TABLET PO SCH (21:12)
[2021-11-05] MEDS: DOCUSATE SODIUM 100 MG CAPSULE (FP) PO SCH (21:12)
[2021-11-05] MEDS: LIDOCAINE PATCH REMOVAL MC SCH (21:13)
[2021-11-05] MEDS: CYCLOBENZAPRINE HCL 10 MG TABLET (FP) PO PRN (21:21)
[2021-11-06] MEDS ORDERED: DEXTROSE 5%-WATER - 50 ML IVPB ONE ×3 (01:17→16:43)
[2021-11-06] MEDS ORDERED: AZTREONAM 1 GM VIAL (RESTRICTED TO ID) ONE ×3 (01:17→16:42)
[2021-11-06] MEDS: AZTREONAM 1 GM in DEXTROSE 5%-WATER - 50 ML IVPB SCH ×3 (02:30→17:14)
[2021-11-06] MEDS: metFORMIN HCL 500 MG TABLET (FP) PO SCH ×2 (06:02→17:17)
[2021-11-06] MEDS: INSULIN SLIDING SCALE (NOVOLOG) 1 VIAL SQ SCH ×4 (06:09→21:37)
[2021-11-06 08:38] LABS: INR 2.56 (0.83-1.09); PROTHROMBIN TIME (PATIENT) 29.7 SEC (9.7-13.0)
[2021-11-06 08:40] LABS: BASO % 0.5 % (0-2.0); EOS % 1.1 % (0-4.5); HEMOGLOBIN 9.7 GM/dL (10.7-15.3); MCH 29.4 pg (25.7-33.7); MCHC 34.5 g/dl (32.0-36.0); MEAN CELL VOLUME 85.2 fl (80-96); MEAN PLT VOLUME 7.9 fl (7.5-11.1); NEUT % 67.4 % (42.8-82.8); PLATELET COUNT 356 10^3/uL (134-434); RBC 3.28 M/mm3 (3.60-5.2); RDW 16.2 % (11.6-15.6); WHITE BLOOD COUNT 8.5 K/mm3 (4.0-10.0)
[2021-11-06 09:06] LABS: BLOOD UREA NITROGEN 26.8 mg/dL (7-18)
[2021-11-06 09:07] LABS: ALBUMIN 2.6 g/dl (3.4-5.0)
[2021-11-06 09:09] LABS: CALCIUM 8.9 mg/dL (8.5-10.1); CREATININE 1.1 mg/dL (0.55-1.3)
[2021-11-06 09:10] LABS: BILIRUBIN,TOTAL 0.8 mg/dL (0.2-1)
[2021-11-06 09:11] LABS: TOT PROT 5.9 g/dl (6.4-8.2)
[2021-11-06] MEDS: POLYETHYLENE GLYCOL (HEALTHYLAX) 3350 17 GM PACKET PO SCH (09:15)
[2021-11-06] MEDS: AMIODARONE HCL 200 MG TABLET PO SCH (09:15)
[2021-11-06] MEDS: LIDOCAINE 5% TOPICAL PATCH TP SCH (09:15)
[2021-11-06] MEDS: ANASTROZOLE 1 MG TABLET PO SCH (09:15)
[2021-11-06] MEDS: SACUBITRIL/VALSARTAN 24 MG-26 MG TABLET PO SCH (10:36)
[2021-11-06] MEDS: ROSUVASTATIN CA 20 MG TABLET PO SCH (21:24)
[2021-11-06] MEDS: DOCUSATE SODIUM 100 MG CAPSULE (FP) PO SCH (21:24)
[2021-11-06] MEDS: CYCLOBENZAPRINE HCL 10 MG TABLET (FP) PO PRN (21:29)
[2021-11-06] MEDS: METHYL SALICYLATE/MENTHOL OINT 30 GM TUBE TP PRN (21:30)
[2021-11-06] MEDS: LIDOCAINE PATCH REMOVAL MC SCH (21:36)
[2021-11-07] MEDS: SACUBITRIL/VALSARTAN 24 MG-26 MG TABLET PO SCH ×3 (00:13→22:22)
[2021-11-07] MEDS ORDERED: AZTREONAM 1 GM VIAL (RESTRICTED TO ID) ONE ×2 (00:52→09:25)
[2021-11-07] MEDS ORDERED: DEXTROSE 5%-WATER - 50 ML IVPB ONE ×2 (00:52→09:25)
[2021-11-07] MEDS: AZTREONAM 1 GM in DEXTROSE 5%-WATER - 50 ML IVPB SCH ×2 (02:02→09:37)
[2021-11-07] MEDS: BENZOCAINE/MENTH/CETYLPYRD CL 1 EACH LOZENGE MM PRN (02:54)
[2021-11-07] MEDS: INSULIN SLIDING SCALE (NOVOLOG) 1 VIAL SQ SCH ×4 (06:29→22:23)
[2021-11-07] MEDS: metFORMIN HCL 500 MG TABLET (FP) PO SCH ×2 (06:29→16:28)
[2021-11-07] MEDS: ACETAMINOPHEN 325 MG TABLET (FP) PO PRN (06:31)
[2021-11-07 08:13] LABS: BASO % 0.6 % (0-2.0); EOS % 1.4 % (0-4.5); HEMATOCRIT 32.3 % (32.4-45.2); HEMOGLOBIN 11.1 GM/dL (10.7-15.3); LYMPH % 15.5 % (8-40); MCHC 34.2 g/dl (32.0-36.0); MEAN CELL VOLUME 84.8 fl (80-96); MEAN PLT VOLUME 7.4 fl (7.5-11.1); MONO % 14.2 % (3.8-10.2); NEUT % 68.3 % (42.8-82.8); PLATELET COUNT 352 10^3/uL (134-434); RBC 3.81 M/mm3 (3.60-5.2); RDW 16.1 % (11.6-15.6)
[2021-11-07 08:43] LABS: ALBUMIN 2.7 g/dl (3.4-5.0); BLOOD UREA NITROGEN 26.5 mg/dL (7-18)
[2021-11-07 08:48] LABS: TOT PROT 6.1 g/dl (6.4-8.2)
[2021-11-07] MEDS: AMIODARONE HCL 200 MG TABLET PO SCH (09:38)
[2021-11-07] MEDS: LIDOCAINE 5% TOPICAL PATCH TP SCH (09:38)
[2021-11-07] MEDS: POLYETHYLENE GLYCOL (HEALTHYLAX) 3350 17 GM PACKET PO SCH (09:38)
[2021-11-07] MEDS: ANASTROZOLE 1 MG TABLET PO SCH (10:01)
[2021-11-07] MEDS: ENOXAPARIN NA (PORCINE) 80 MG/0.8 ML DISP.SYRIN SQ SCH ×2 (12:20→22:23)
[2021-11-07] MEDS ORDERED: WARFARIN NA 7.5 MG TABLET PO ONE (18:00)
[2021-11-07] MEDS: DOCUSATE SODIUM 100 MG CAPSULE (FP) PO SCH (22:22)
[2021-11-07] MEDS: ROSUVASTATIN CA 20 MG TABLET PO SCH (22:22)
[2021-11-07] MEDS: LIDOCAINE PATCH REMOVAL MC SCH (22:23)
[2021-11-08] MEDS: ACETAMINOPHEN 325 MG TABLET (FP) PO PRN ×2 (00:35→10:01)
[2021-11-08] MEDS: CYCLOBENZAPRINE HCL 10 MG TABLET (FP) PO PRN (00:35)
[2021-11-08] MEDS: metFORMIN HCL 500 MG TABLET (FP) PO SCH ×2 (06:18→17:16)
[2021-11-08] MEDS: INSULIN SLIDING SCALE (NOVOLOG) 1 VIAL SQ SCH ×4 (06:18→22:24)
[2021-11-08 07:27] LABS: INR 1.69 (0.83-1.09); PROTHROMBIN TIME (PATIENT) 19.5 SEC (9.7-13.0)
[2021-11-08] MEDS: LIDOCAINE 5% TOPICAL PATCH TP SCH (10:00)
[2021-11-08] MEDS: AMIODARONE HCL 200 MG TABLET PO SCH (10:03)
[2021-11-08] MEDS: POLYETHYLENE GLYCOL (HEALTHYLAX) 3350 17 GM PACKET PO SCH (10:03)
[2021-11-08] MEDS: SACUBITRIL/VALSARTAN 24 MG-26 MG TABLET PO SCH ×2 (10:04→22:23)
[2021-11-08] MEDS: ENOXAPARIN NA (PORCINE) 80 MG/0.8 ML DISP.SYRIN SQ SCH ×2 (10:05→22:24)
[2021-11-08] MEDS: ANASTROZOLE 1 MG TABLET PO SCH (10:28)
[2021-11-08 16:16] VITALS: BMI 23.7
[2021-11-08] MEDS ORDERED: WARFARIN NA 5 MG TABLET PO ONE (21:20)
[2021-11-08] MEDS: ROSUVASTATIN CA 20 MG TABLET PO SCH (22:23)
[2021-11-08] MEDS: DOCUSATE SODIUM 100 MG CAPSULE (FP) PO SCH (22:23)
[2021-11-08] MEDS: LIDOCAINE PATCH REMOVAL MC SCH (22:24)
[2021-11-09] MEDS: metFORMIN HCL 500 MG TABLET (FP) PO SCH ×2 (06:02→16:55)
[2021-11-09] MEDS: INSULIN SLIDING SCALE (NOVOLOG) 1 VIAL SQ SCH ×4 (06:02→22:16)
[2021-11-09 08:27] LABS: INR 1.89 (0.83-1.09); PROTHROMBIN TIME (PATIENT) 21.9 SEC (9.7-13.0)
[2021-11-09] MEDS: LIDOCAINE 5% TOPICAL PATCH TP SCH (09:20)
[2021-11-09] MEDS: POLYETHYLENE GLYCOL (HEALTHYLAX) 3350 17 GM PACKET PO SCH (09:20)
[2021-11-09] MEDS: ENOXAPARIN NA (PORCINE) 80 MG/0.8 ML DISP.SYRIN SQ SCH ×2 (09:20→22:08)
[2021-11-09] MEDS: SACUBITRIL/VALSARTAN 24 MG-26 MG TABLET PO SCH ×2 (09:23→22:08)
[2021-11-09] MEDS: ANASTROZOLE 1 MG TABLET PO SCH (09:25)
[2021-11-09] MEDS ORDERED: FUROSEMIDE 20 MG TABLET (FP) PO ONE (11:15)
[2021-11-09] MEDS: AMIODARONE HCL 200 MG TABLET PO SCH (11:16)
[2021-11-09] MEDS ORDERED: WARFARIN NA 5 MG TABLET PO ONE (18:00)
[2021-11-09] MEDS: CYCLOBENZAPRINE HCL 10 MG TABLET (FP) PO PRN (22:08)
[2021-11-09] MEDS: DOCUSATE SODIUM 100 MG CAPSULE (FP) PO SCH (22:08)
[2021-11-09] MEDS: ROSUVASTATIN CA 20 MG TABLET PO SCH (22:08)
[2021-11-09] MEDS: ACETAMINOPHEN 325 MG TABLET (FP) PO PRN (22:17)
[2021-11-09] MEDS: LIDOCAINE PATCH REMOVAL MC SCH (22:17)
[2021-11-10] MEDS: metFORMIN HCL 500 MG TABLET (FP) PO SCH ×2 (06:50→17:01)
[2021-11-10] MEDS: INSULIN SLIDING SCALE (NOVOLOG) 1 VIAL SQ SCH ×4 (06:50→21:36)
[2021-11-10] MEDS: LIDOCAINE 5% TOPICAL PATCH TP SCH (09:06)
[2021-11-10] MEDS: ENOXAPARIN NA (PORCINE) 80 MG/0.8 ML DISP.SYRIN SQ SCH ×2 (09:07→21:28)
[2021-11-10] MEDS: ANASTROZOLE 1 MG TABLET PO SCH (09:08)
[2021-11-10] MEDS: AMIODARONE HCL 200 MG TABLET PO SCH (09:09)
[2021-11-10] MEDS: SACUBITRIL/VALSARTAN 24 MG-26 MG TABLET PO SCH ×2 (09:15→21:27)
[2021-11-10] MEDS: POLYETHYLENE GLYCOL (HEALTHYLAX) 3350 17 GM PACKET PO SCH (10:49)
[2021-11-10 11:28] LABS: ALBUMIN 2.7 g/dl (3.4-5.0); BLOOD UREA NITROGEN 21.8 mg/dL (7-18); CALCIUM 9.7 mg/dL (8.5-10.1)
[2021-11-10 11:32] LABS: BILIRUBIN,TOTAL 0.3 mg/dL (0.2-1); TOT PROT 6.2 g/dl (6.4-8.2)
[2021-11-10] MEDS ORDERED: WARFARIN NA 5 MG TABLET PO ONE (18:34)
[2021-11-10] MEDS: ROSUVASTATIN CA 20 MG TABLET PO SCH (21:27)
[2021-11-10] MEDS: DOCUSATE SODIUM 100 MG CAPSULE (FP) PO SCH (21:27)
[2021-11-10] MEDS: CYCLOBENZAPRINE HCL 10 MG TABLET (FP) PO PRN (21:27)
[2021-11-10 21:35] LABS: PROTHROMBIN TIME (PATIENT) 49.7 SEC (9.7-13.0)
[2021-11-10 21:44] LABS: INR 4.26 (0.83-1.09)
[2021-11-10] MEDS: LIDOCAINE PATCH REMOVAL MC SCH (21:47)
[2021-11-11] MEDS: metFORMIN HCL 500 MG TABLET (FP) PO SCH ×2 (06:41→17:11)
[2021-11-11] MEDS: INSULIN SLIDING SCALE (NOVOLOG) 1 VIAL SQ SCH ×4 (06:41→22:29)
[2021-11-11 08:48] LABS: PROTHROMBIN TIME (PATIENT) 61.8 SEC (9.7-13.0)
[2021-11-11 09:39] LABS: INR 5.28 (0.83-1.09)
[2021-11-11] MEDS: ANASTROZOLE 1 MG TABLET PO SCH (10:14)
[2021-11-11] MEDS: SACUBITRIL/VALSARTAN 24 MG-26 MG TABLET PO SCH ×2 (10:14→22:23)
[2021-11-11] MEDS: POLYETHYLENE GLYCOL (HEALTHYLAX) 3350 17 GM PACKET PO SCH (10:14)
[2021-11-11] MEDS: AMIODARONE HCL 200 MG TABLET PO SCH (10:14)
[2021-11-11] MEDS: LIDOCAINE 5% TOPICAL PATCH TP SCH (10:14)
[2021-11-11] MEDS: ACETAMINOPHEN 325 MG TABLET (FP) PO PRN ×2 (10:15→22:21)
[2021-11-11] MEDS: CYCLOBENZAPRINE HCL 10 MG TABLET (FP) PO PRN ×2 (10:15→22:21)
[2021-11-11] MEDS: ROSUVASTATIN CA 20 MG TABLET PO SCH (22:21)
[2021-11-11] MEDS: SENNOSIDES 8.6MG TABLET (FP) PO SCH (22:22)
[2021-11-11] MEDS: DOCUSATE SODIUM 100 MG CAPSULE (FP) PO SCH (22:22)
[2021-11-11] MEDS: LIDOCAINE PATCH REMOVAL MC SCH (22:22)
[2021-11-12] MEDS: INSULIN SLIDING SCALE (NOVOLOG) 1 VIAL SQ SCH ×4 (06:16→21:58)
[2021-11-12] MEDS: metFORMIN HCL 500 MG TABLET (FP) PO SCH ×2 (06:16→16:57)
[2021-11-12] MEDS: ANASTROZOLE 1 MG TABLET PO SCH (09:38)
[2021-11-12] MEDS: AMIODARONE HCL 200 MG TABLET PO SCH (09:38)
[2021-11-12] MEDS: SACUBITRIL/VALSARTAN 24 MG-26 MG TABLET PO SCH ×2 (09:38→21:51)
[2021-11-12] MEDS: POLYETHYLENE GLYCOL (HEALTHYLAX) 3350 17 GM PACKET PO SCH (09:38)
[2021-11-12] MEDS: LIDOCAINE 5% TOPICAL PATCH TP SCH (09:39)
[2021-11-12 13:43] LABS: PROTHROMBIN TIME (PATIENT) 51.1 SEC (9.7-13.0)
[2021-11-12 14:00] LABS: INR 4.38 (0.83-1.09)
[2021-11-12] MEDS ORDERED: WARFARIN NA 3 MG TABLET PO SCH (18:00)
[2021-11-12] MEDS: CYCLOBENZAPRINE HCL 10 MG TABLET (FP) PO PRN (21:51)
[2021-11-12] MEDS: DOCUSATE SODIUM 100 MG CAPSULE (FP) PO SCH (21:51)
[2021-11-12] MEDS: SENNOSIDES 8.6MG TABLET (FP) PO SCH (21:51)
[2021-11-12] MEDS: ROSUVASTATIN CA 20 MG TABLET PO SCH (21:51)
[2021-11-12] MEDS: LIDOCAINE PATCH REMOVAL MC SCH (21:51)
[2021-11-12] MEDS: ACETAMINOPHEN 325 MG TABLET (FP) PO PRN (21:51)
[2021-11-12] MEDS: BENZOCAINE/MENTH/CETYLPYRD CL 1 EACH LOZENGE MM PRN (21:58)
[2021-11-13] MEDS: INSULIN SLIDING SCALE (NOVOLOG) 1 VIAL SQ SCH ×2 (06:20→11:05)
[2021-11-13] MEDS: metFORMIN HCL 500 MG TABLET (FP) PO SCH (06:20)
[2021-11-13 08:57] LABS: PROTHROMBIN TIME (PATIENT) 48.1 SEC (9.7-13.0)
[2021-11-13 09:16] LABS: INR 4.12 (0.83-1.09)
[2021-11-13] MEDS: AMIODARONE HCL 200 MG TABLET PO SCH (10:02)
[2021-11-13] MEDS: LIDOCAINE 5% TOPICAL PATCH TP SCH (10:02)
[2021-11-13] MEDS: POLYETHYLENE GLYCOL (HEALTHYLAX) 3350 17 GM PACKET PO SCH (10:02)
[2021-11-13] MEDS: ANASTROZOLE 1 MG TABLET PO SCH (10:02)
[2021-11-13] MEDS: SACUBITRIL/VALSARTAN 24 MG-26 MG TABLET PO SCH (12:15)
[2021-11-13 12:50] VITALS: BP 112/66; PULSE 84; TEMP 98
== END 2021-11-13 17:17 | disposition home or self-care (01) | DRG 682 ==
LOC: JER 12:27 → JERBED 16:23 → J4S 10-27 16:47
PROVIDERS: ADMIT Internal Medicine; ATTEND Internal Medicine
PROC: XW033E5 Introduction of Remdesivir Anti-infective into Peripheral Vein, Percutaneous Approach, New Technology Group 5 (ICD-10-PCS; principal; 2021-10-27)
DX: N17.9 Acute kidney failure, unspecified (principal); U07.1 COVID-19; J12.82 Pneumonia due to coronavirus disease 2019; I13.0 Hypertensive heart and chronic kidney disease with heart failure and stage 1 through stage 4 chronic kidney disease, or unspecified chronic kidney disease; I50.22 Chronic systolic (congestive) heart failure; E78.5 Hyperlipidemia, unspecified; Z79.01 Long term (current) use of anticoagulants; E11.9 Type 2 diabetes mellitus without complications; Z79.84 Long term (current) use of oral hypoglycemic drugs; N28.89 Other specified disorders of kidney and ureter; I48.0 Paroxysmal atrial fibrillation; E87.6 Hypokalemia; N18.9 Chronic kidney disease, unspecified; E11.22 Type 2 diabetes mellitus with diabetic chronic kidney disease; R79.1 Abnormal coagulation profile; D64.9 Anemia, unspecified; Z85.3 Personal history of malignant neoplasm of breast
CPT/HCPCS: 0241U-QW; 36415; 71046-TC-FY; 71250-TC; 74183-TC; 76775-TC; 80053; 81003; 82272; 82962; 83605; 83735; 83880; 84484; 84550; 85025; 85027; 85610; 85730; 87040; 87086; 93005; 93010; 93306-TC; 93970-TC; 97116-GP; 97162-GP; 99285-25; A9579; C9399; J1644